=== PATIENT | male | born 1965 | race Caucasian/White ===

== ENCOUNTER 2019-12-20 08:02 | Emergency (ER) | payer OTHER, SELFPAY ==
--- NOTE | 2019-12-20 08:12 | ED.GENADULT ---
HPI - General Adult General Chief complaint: Ear Stated complaint: Ears clogged Time Seen by Provider: 12/20/19 08:16 Source: patient Mode of arrival: ambulatory Limitations: no limitations History of Present Illness HPI narrative: 54-year-old male patient presents to the [facility] with complaints of irritation to the right ear. Patient states he tried using a Q-tip to get some wax out about 2 or 3 days ago and states now it feels very impacted and has decreased hearing to the ear. Denies any fevers or body aches. Related Data Home Medications Medication Instructions Recorded Confirmed fluticasone propionate 50 2 spray NASAL DAILY 07/08/19 mcg/actuation nasal spray,suspension Allergies Allergy/AdvReac Type Severity Reaction Status Date / Time No Known Allergies Allergy Mild Verified 09/12/19 10:36 Review of Systems Review of Systems: Narrative: CONSTITUTIONAL: Denies fever, chills, or sweats. EYES: Denies visual changes, redness, or discharge. ENT: Denies rhinorrhea, congestion, sore throat, positive right otalgia. CARDIOVASCULAR: Denies chest pain, palpitations, or edema. RESPIRATORY: Denies cough or dyspnea. GASTROINTESTINAL: Denies abdominal pain, nausea, vomiting, or diarrhea. GENITOURINARY: Denies dysuria or hematuria. SKIN: Denies rash or itching. MUSCULOSKELETAL: Denies back pain, joint pain, or myalgia. NEUROLOGIC: Denies headache, numbness, or weakness. PSYCHIATRIC: Denies anxiety or depression. [facility] Past Medical History Medical History Tobacco abuse Family History Family History Father Carcinoma of colon Family history of Alzheimer's disease Mother Carcinoma of colon Other Diabetes mellitus Family history of cardiovascular disease Family history of malignant neoplasm Social History Social History Years smoked: 41 Smoking status: Current every day smoker Tobacco type: cigarettes Second hand tobacco smoke exposure: No Smoking end date: 07/02/16 Alcohol intake: never Substance use: never Comments At the time of my signature I agree with nursing past medical history, surgical, social, and family history. There is no relevant family history pertinent to the presenting complaint. Exam Narrative: Exam Narrative: GENERAL: Well-appearing, well-nourished, and in no acute distress. HEAD: Normocephalic, atraumatic. EYES: PERRLA and EOMI. ENT: Nares clear, no rhinorrhea or epistaxis. Mucous membranes moist. Unable to visualize the TM on the right side due to cerumen impaction. NECK: Supple. No lymphadenopathy CHEST: Clear to auscultation. No respiratory distress. HEART: Regular rate and rhythm. No murmur heard. Normal peripheral pulses. ABDOMEN: Soft, nontender, nondistended, normal active bowel sounds. EXTREMITIES: Normal range of motion. No edema. SKIN: Warm, dry, no rash. NEURO: No focal deficits. Alert and oriented x3. Course Vital Signs Vital signs: Vital Signs Temperature 36.4 C 12/20/19 08:13 Pulse Rate 80 12/20/19 08:13 Respiratory Rate 16 12/20/19 08:13 Blood Pressure 141/95 H 12/20/19 08:13 Pulse Oximetry 98 12/20/19 08:13 Temperature 36.4 C 12/20/19 08:13 Pulse Rate 80 12/20/19 08:13 Respiratory Rate 16 12/20/19 08:13 Blood Pressure 141/95 H 12/20/19 08:13 Pulse Oximetry 98 12/20/19 08:13 Vital signs reviewed. The patient has been informed that they may have pre-hypertension or Hypertension based on a BP reading in the department. I recommend that the patient call the primary care provider listed on their discharge instructions or a physician of their choice this week to arrange follow up for further evaluation of possible pre-hypertension or Hypertension Procedures Ear Wax Removal Right Ear: Ear Wax Removal Date: 12/20/19 Ear Wax Tomas
[2019-12-20 08:13] VITALS: BP 141/95; PULSE 80; RESP 16; TEMP 36.4; O2SAT 98
== END 2019-12-20 08:30 | disposition home or self-care (01) ==
PROVIDERS: Emergency Provider Nurse Practitioner Family; PCP Internal Medicine
DX: H61.21 Impacted cerumen, right ear (principal); F17.210 Nicotine dependence, cigarettes, uncomplicated; J44.9 Chronic obstructive pulmonary disease, unspecified
CPT/HCPCS: 69210; 99213; G0463

== ENCOUNTER 2020-03-09 06:57 | Outpatient (CLI) | payer OTHER, SELFPAY ==
[2020-03-09 07:18] LABS: Basophils Absolute Auto 0.1 K/mm3 (0.0-0.1); Basophils Percent Auto 0.8 % (0.2-1.2); Eosinophils Absolute Auto 0.2 K/mm3 (0-0.3); Eosinophils Percent Auto 2.6 % (0-4.4); Hematocrit 50.9 % (42.0-52.0); Hemoglobin 17.4 g/dL (14.0-18.0); Immature Granulocyte Absolute 0.04 K/mm3 (0.00-0.031); Immature Granulocyte Percent A 0.5 % (0-0.5); Lymphocytes Absolute Auto 3.47 K/mm3 (0.9-3.2); Lymphocytes Percent Auto 39.8 % (18.3-44.2); Mean Corpuscular HGB Conc 34.2 g/dl (32-36); Mean Corpuscular Hemoglobin 31.3 pg (26-34); Mean Corpuscular Volume 91.5 fl (80-100); Mean Platelet Volume 9.8 fl (7.4-10.4); Monocytes Absolute Auto 0.8 K/mm3 (0.1-0.6); Monocytes Percent Auto 8.7 % (2.6-8.5); Neutrophils Absolute Auto 4.2 K/mm3 (1.3-6.7); Neutrophils Percent Auto 47.6 % (45.5-73.1); Platelet Count Result 290 k/mm3 (150-375); Red Blood Count 5.56 M/mm3 (4.6-6.20); Red Cell Distribution Width 13.2 % (11.5-14.5); White Blood Count 8.7 K/mm3 (4.5-10.0)
[2020-03-09 08:51] LABS: Alanine Aminotransferase 14 U/L (4-50); Albumin Level 4.1 g/dL (3.5-5.1); Alkaline Phosphatase 79 U/L (38-126); Anion Gap 7 mmol/L (8-16); Aspartate Amino Transferase 22 U/L (17-59); Bilirubin,Total 1.1 mg/dL (0.2-1.3); Blood Urea Nitrogen 12 mg/dL (9-20); Calcium 9.4 mg/dL (8.4-10.2); Carbon Dioxide 25 mmol/L (22-30); Chloride 108 mmol/L (98-107); Cholesterol 234 mg/dL (0-200); Estimated Glomerular Filt Rate > 60; Glucose 95 mg/dL (75-110); HDL Direct 36 mg/dL; Potassium 3.9 mmol/L (3.4-5.0); Sodium 140 mmol/L (137-145); Triglycerides 206 mg/dL (<150)
[2020-03-09 09:04] LABS: LDL Cholesterol Direct 159 mg/dL
[2020-03-09 09:25] LABS: Prostate Specific Antigen 0.9 ng/mL (< OR = 4.0)
[2020-03-09 09:59] LABS: Folic Acid 5.1 ng/mL (2.76->20)
== END 2020-03-09 06:58 | disposition home or self-care (01) ==
PROVIDERS: PCP Internal Medicine; Visit Provider Internal Medicine
DX: R53.83 Other fatigue (principal); E78.5 Hyperlipidemia, unspecified; Z12.5 Encounter for screening for malignant neoplasm of prostate
CPT/HCPCS: 36415; 80053; 80061; 82607; 82746; 84153; 84443; 85025; G0103

== ENCOUNTER 2020-03-17 11:51 | Outpatient (CLI) | payer OTHER, SELFPAY ==
[2020-03-17 12:18] LABS: Add Urine Microscopic? NO; Appearance Urine Clear (Clear); Bilirubin Urine Negative (Negative); Blood Urine Negative (Negative); Color Urine Yellow (Yellow); Glucose Urine UA Negative (Negative); Ketones Urine Negative (Negative); Leukocyte Esterase Ur Negative LEU/UL (Negative); Nitrate Urine Negative (Negative); Protein Urine Negative (Negative); Specific Grav Ur 1.012 (1.001-1.035); Urobilinogen Urine Negative mg/dL (<2.0)
== END 2020-03-17 11:52 | disposition home or self-care (01) ==
LOC: ANHLAB 11:52
PROVIDERS: PCP Internal Medicine; Visit Provider Internal Medicine
DX: R30.0 Dysuria (principal)
CPT/HCPCS: 81003

== ENCOUNTER 2020-06-23 02:13 | Emergency (ER) | payer OTHER, SELFPAY ==
--- NOTE | ~2020-06-23 | CT_ITS ---
EXAMINATION: CT abdomen pelvis w con DATE: 06/23/2020 03:33 INDICATION: Epigastric abdominal pain for 2 days TECHNIQUE: Computed tomography (CT) of the abdomen and pelvis was performed with 100 cc Omnipaque 350 intravenous contrast. Automated exposure control and iterative reconstruction technique were employe d. Exam dose: 1275.23 mGy-cm total exam DLP. COMPARISON: None. FINDINGS: The lung bases are clear of infiltrate or consolidation. There are bilateral posteromedial foramen of [place] fat-containing hernias. Normal heart size. No pericardial or pleural effusion. Small sliding hiatal hernia. 1.4 cm lower right hepatic cyst. No other significant hepatic abnormality. The gallbladder is present . No gallbladder wall thickening or pericholecystic fluid or inflammation. No bile duct dilatation. N o pancreatic mass lesion, calcification or pancreatic duct dilatation. Normal splenic size. Normal morphology of the adrenal glands. No renal mass lesion or urinary tract calculus or hydroureteronephrosis. The urinary bladder is unrem arkable. There are multiple diverticula of the sigmoid colon; no CT evidence of diverticulitis. No bowel obstr uction, bowel wall thickening, pneumatosis or intraperitoneal free air is detected. Normal appendix. There is atherosclerotic calcification of the abdominal aorta but no aneurysm. No intraperitoneal or retroperitoneal or pelvic mass lesion or adenopathy or ascites. Small fat-containing umbilical hernia. No suspicious osteolytic or osteoblastic lesions. Mild degenerative changes of the thoracic and lumba r spine. IMPRESSION: Normal appendix Diverticulosis of the colon Reviewed, dictated and finalized at [facility]. Reviewed, dictated and finalized at location A. ERYMAN
--- NOTE | ~2020-06-23 | XR_ITS ---
EXAMINATION: XR chest 2V DATE: 06/23/2020 03:36 INDICATION: Chest pain TECHNIQUE: PA and lateral views of the chest are obtained. COMPARISON: 09/06/2016 FINDINGS: The lungs are free of acute opacities. There is no pleural effusion or pneumothorax. The ca rdiomediastinal silhouette is normal. The visualized bones and soft tissues are unremarkable. IMPRESSION: 1. No acute cardiopulmonary abnormality. Reviewed, dictated and finalized at location A. SIGN MAKER
--- NOTE | 2020-06-23 02:16 | ED.CHESTPAIN ---
HPI - Chest Pain General Chief Complaint: Chest Pain Stated Complaint: Chest pain, ABD pain Time Seen by Provider: 06/23/20 02:16 Source: patient Mode of arrival: ambulatory Limitations: no limitations History of Present Illness HPI narrative: The patient is a 55-year-old male with a history of COPD who presents for evaluation of epigastric pain. Patient reports pain has been present in the upper abdomen over the past 3 days, worsening in severity, but mostly constant in nature. Described as sharp, burning, aching in nature and tender in the upper abdomen. No associated nausea or vomiting. Tonight he was able to tolerate hamburger and macaroni without any worsened symptoms. He reports some discomfort in his middle back. Pain is not positional. He denies any chest pain, shortness of breath, shoulder pain, diaphoresis. No left arm numbness or tingling. No fever or chills. Patient reports mild productive cough consistent with his COPD but denies any shortness of breath. Denies any worsening wheezing. Has been using his nebulizer treatments at home. Related Data Allergies Allergy/AdvReac Type Severity Reaction Status Date / Time No Known Allergies Allergy Mild Verified 05/11/20 13:32 Review of Systems Review of Systems: Narrative: CONSTITUTIONAL: Denies fever, chills, or sweats. EYES: Denies visual changes, redness, or discharge. ENT: Denies rhinorrhea, congestion, sore throat, or otalgia. CARDIOVASCULAR: Denies chest pain, palpitations, or edema. RESPIRATORY: Reports mild cough without shortness of breath GASTROINTESTINAL: Reports epigastric pain without nausea or vomiting GENITOURINARY: Denies dysuria or hematuria. SKIN: Denies rash or itching. MUSCULOSKELETAL: Reports no radiation of the pain to the back without lower joint pain, flank pain, no myalgias NEUROLOGIC: Denies headache, numbness, or weakness. [facility] Past Medical History Medical History Asthma-COPD overlap syndrome Pure hypercholesterolemia, unspecified Sleep disturbance, unspecified Tobacco abuse Family History Family History (Updated 05/11/20 @ 14:47 by Irma Akers MD) Father Carcinoma of colon Family history of Alzheimer's disease Mother Carcinoma of colon, Onset Age: 78 from liver cancer Mar 2020 Other Diabetes mellitus Family history of cardiovascular disease Family history of malignant neoplasm Social History Social History Smoking packs per day: 0.5 Smoking cigarettes per day: 10.0 Years smoked: 41 Smoking pack-years: 20.50 Smoking status: Current every day smoker Tobacco type: cigarettes Second hand tobacco smoke exposure: No Smoking end date: 07/02/16 Alcohol intake: never Substance use: never Exam Narrative: Exam Narrative: GENERAL: Awake, alert, conversant, mildly uncomfortable appearing HEAD: Normocephalic, atraumatic. EYES: PERRLA and EOMI. ENT: Nares clear, no rhinorrhea or epistaxis. Mucous membranes moist. NECK: Supple. CHEST: No respiratory distress, breathing even and non labored, no wheezing HEART: Regular rate, sinus rhythm ABDOMEN:Non distended, tender in the epigastrium without rebound, rigidity or guarding EXTREMITIES: Normal range of motion. No edema. SKIN: Warm, dry, no rash. NEURO:No focal deficits. Alert and oriented x3 Course Vital Signs Vital signs: Vital Signs Temperature 36.8 C 06/23/20 02:22 Pulse Rate 81 06/23/20 02:22 Respiratory Rate 18 06/23/20 02:22 Blood Pressure 136/105 H 06/23/20 02:22 Pulse Oximetry 95 06/23/20 02:22 Temperature 36.8 C 06/23/20 02:22 Pulse Rate 73 06/23/20 03:17 Respiratory Rate 16 06/23/20 03:17 Blood Pressure 118/68 06/23/20 03:17 Pulse Oximetry 93 06/23/20 03:17 MDM - Chest Pain MDM Narrative Medical decision making narrative: Patient presented for evaluation of epigastric abdo
[2020-06-23 02:22] VITALS: BP 136/105; PULSE 81; RESP 18; TEMP 36.8; O2SAT 95
--- NOTE | 2020-06-23 02:27 | ECG_ITS ---
Measurements Intervals [place] Rate: 69 P: 49 [place]: 133 QRS: -10 QRSD: 89 T: 44 QT: 367 QTc: 395 Interpretive Statements SINUS RHYTHM EARLY PRECORDIAL R/S TRANSITION BORDERLINE ECG Electronically Signed On 06-23-2020 7:40:36 EDUCATION INSTRUCTOR by Khoi Francois D.O.
[2020-06-23] MEDS: MORPHINE SULFATE (*CRX) 4 MG/ML INJ IV PUSH (02:38)
[2020-06-23] MEDS: BELLADONNA ALK/PHENOB ELIX 10 ML, MAG HYDROX/ALUMINUM HYD/SIMETH 30 ML, LIDOCAINE HCL 2... PO (02:39)
[2020-06-23] MEDS: FAMOTIDINE 20 MG/2 ML VIAL IV PUSH (02:39)
[2020-06-23] MEDS: ONDANSETRON INJ 4 MG/2 ML VIAL IV PUSH (02:39)
[2020-06-23 03:17] VITALS: BP 118/68; PULSE 73; RESP 16; O2SAT 93
[2020-06-23 03:23] LABS: Estimated CRCL calculation 85 ml/min; Estimated Glomerular Filt Rate > 60
[2020-06-23 03:24] LABS: Basophils Absolute Auto 0.1 K/mm3 (0.0-0.1); Basophils Percent Auto 0.4 % (0.2-1.2); Eosinophils Absolute Auto 0.1 K/mm3 (0-0.3); Eosinophils Percent Auto 1.2 % (0-4.4); Hematocrit 48.8 % (42.0-52.0); Hemoglobin 16.8 g/dL (14.0-18.0); Immature Granulocyte Absolute 0.04 K/mm3 (0.00-0.031); Immature Granulocyte Percent A 0.3 % (0-0.5); Lymphocytes Absolute Auto 3.23 K/mm3 (0.9-3.2); Lymphocytes Percent Auto 27.8 % (18.3-44.2); Mean Corpuscular HGB Conc 34.4 g/dl (32-36); Mean Corpuscular Hemoglobin 31.8 pg (26-34); Mean Corpuscular Volume 92.2 fl (80-100); Mean Platelet Volume 10.2 fl (7.4-10.4); Monocytes Absolute Auto 1.1 K/mm3 (0.1-0.6); Neutrophils Absolute Auto 7.1 K/mm3 (1.3-6.7); Neutrophils Percent Auto 61.3 % (45.5-73.1); Platelet Count Result 293 k/mm3 (150-375); Red Blood Count 5.29 M/mm3 (4.6-6.20); White Blood Count 11.6 K/mm3 (4.5-10.0)
[2020-06-23 03:36] LABS: Alanine Aminotransferase 16 U/L (4-50); Albumin Level 3.9 g/dL (3.5-5.1); Alkaline Phosphatase 80 U/L (38-126); Anion Gap 7 mmol/L (8-16); Aspartate Amino Transferase 22 U/L (17-59); Bilirubin,Total 0.6 mg/dL (0.2-1.3); Blood Urea Nitrogen 9 mg/dL (9-20); Calcium 9.1 mg/dL (8.4-10.2); Carbon Dioxide 27 mmol/L (22-30); Chloride 104 mmol/L (98-107); Estimated CRCL calculation 85 ml/min; Estimated Glomerular Filt Rate > 60; Glucose 99 mg/dL (75-110); INR 1.1; Lipase 92 U/L (23-300); Partial Thromboplastin Time 32.1 SECONDS (22.3-36.8); Potassium 3.9 mmol/L (3.4-5.0); Prothrombin Time 14.3 Seconds (11.1-14.7); Sodium 138 mmol/L (137-145)
[2020-06-23 03:48] LABS: NT Pro B Type Natriuretic Pept 25 PG/ML (5-100); Troponin I < 0.012 ng/mL (0.000-0.034)
[2020-06-23 04:39] VITALS: BP 134/96; PULSE 78; RESP 16; TEMP 36.7; O2SAT 94
== END 2020-06-23 04:40 | disposition home or self-care (01) ==
PROVIDERS: Emergency Provider Emergency Medicine; PCP Internal Medicine
DX: K44.9 Diaphragmatic hernia without obstruction or gangrene (principal); K20.90 Esophagitis, unspecified without bleeding; K59.09 Other constipation; J44.9 Chronic obstructive pulmonary disease, unspecified; E78.00 Pure hypercholesterolemia, unspecified; G47.9 Sleep disorder, unspecified; F17.210 Nicotine dependence, cigarettes, uncomplicated; R94.31 Abnormal electrocardiogram [ECG] [EKG]
CPT/HCPCS: 36415; 71046; 74177; 80053; 83690; 83880; 84484; 85025; 85610; 85730; 93005; 96374; 96375; 99284; A9270; J2270; J2405; Q9967

== ENCOUNTER 2020-10-14 03:56 | Emergency (ER) | payer OTHER, SELFPAY ==
[2020-10-14] VITALS (11 sets, daily range): BP systolic 121–150; BP diastolic 96–97; PULSE 73–85; RESP 11–22; TEMP 36.8; O2SAT 93–100
--- NOTE | ~2020-10-14 | CT_ITS ---
EXAMINATION: CTA chest PE protocol EXAM DATE: 10/14/2020 05:17 INDICATION: Right-sided chest pain, evaluate for pulmonary embolism. History of COPD. TECHNIQUE: Spiral CTA of the chest (pulmonary arteries) was performed with 100 cc Omnipaque 350 intr avenous contrast injection. Images were acquired during the pulmonary arterial phase. Coronal maxi mum intensity projection 3D-reconstructions were created by the technologist on dedicated workstation . Axial, coronal and sagittal reformatted images were reviewed. The dose-length product (DLP) for t his examination was 883.83 mGy-cm. The exposure was tailored according to patient size (auto mA exp osure control), and iterative reconstruction (ASIR) was used as additional dose reduction technique. Comparison is made to prior examination from 06/09/2019. FINDINGS: Pulmonary arteries are well opacified and without intraluminal filling defects. Chronic hy perinflation. No thoracic aortic dissection. The lungs are clear. There are no pleural or pericar dial effusions. Tracheobronchial tree is patent. There is no mediastinal, hilar or axillary lymph adenopathy. There is no pneumothorax. Heart normal in size. No evidence of coronary arterial ca lcification. There is small sliding gastroesophageal hiatal hernia. There is thoracic spondylosis wi thout osteoblastic or osteolytic lesions identified. IMPRESSION: 1. No pulmonary emboli or acute cardiopulmonary findings. 2. Small to moderate hiatal hernia. 3. Hyperinflation. Reviewed, dictated and finalized at location A.
--- NOTE | ~2020-10-14 | XR_ITS ---
EXAMINATION: XR chest 1V portable EXAM DATE: 10/14/2020 04:48 INDICATION: Right-sided chest pain. TECHNIQUE: Portable AP frontal chest x-ray was obtained. Comparison is made to prior examination from 08/24/2019. FINDINGS: The lungs are clear. There are no pleural effusions. The cardiomediastinal silhouette is within normal limits. There is no pneumothorax suspected. The bones and soft tissues are unremarkab le. IMPRESSION: No acute cardiopulmonary findings. Reviewed, dictated and finalized at location A.
--- NOTE | 2020-10-14 04:08 | ECG_ITS ---
Measurements Intervals [place] Rate: 80 P: 60 NE: 139 QRS: 31 QRSD: 90 T: 55 QT: 352 QTc: 408 Interpretive Statements SINUS RHYTHM WITH SINUS ARRHYTHMIA POSSIBLE LEFT ATRIAL ENLARGEMENT INCOMPLETE RIGHT BUNDLE BRANCH BLOCK BORDERLINE ST-T WAVE ABNORMALITY- DIFFUSE LEADS BASELINE ARTIFACT- I, II, AVR, AVL, V2 BORDERLINE ECG Electronically Signed On 10-14-2020 7:02:47 CDT by Khoi Francois D.O.
[2020-10-14] MEDS: methylPREDNISolone SOD SUCC 125 MG VIAL IV PUSH (04:16)
[2020-10-14 04:23] LABS: Basophils Absolute Auto 0.1 K/mm3 (0.0-0.1); Basophils Percent Auto 0.6 % (0.2-1.2); Eosinophils Absolute Auto 0.2 K/mm3 (0-0.3); Eosinophils Percent Auto 1.5 % (0-4.4); Hematocrit 50.6 % (42.0-52.0); Hemoglobin 16.9 g/dL (14.0-18.0); Immature Granulocyte Absolute 0.03 K/mm3 (0.00-0.031); Immature Granulocyte Percent A 0.3 % (0-0.5); Lymphocytes Absolute Auto 2.96 K/mm3 (0.9-3.2); Lymphocytes Percent Auto 27.3 % (18.3-44.2); Mean Corpuscular HGB Conc 33.4 g/dl (32-36); Mean Corpuscular Hemoglobin 31.1 pg (26-34); Mean Corpuscular Volume 93.2 fl (80-100); Monocytes Percent Auto 8.9 % (2.6-8.5); Neutrophils Absolute Auto 6.7 K/mm3 (1.3-6.7); Neutrophils Percent Auto 61.4 % (45.5-73.1); Platelet Count Result 309 k/mm3 (150-375); Red Blood Count 5.43 M/mm3 (4.6-6.20); Red Cell Distribution Width 13.2 % (11.5-14.5); White Blood Count 10.8 K/mm3 (4.5-10.0)
[2020-10-14] MEDS: ALBUTEROL SULFATE NEB 2.5 MG/0.5 ML INH 5 MG INHALATION (04:26)
[2020-10-14] MEDS: IPRATROPIUM BR 0.02% INH SOLN 0.5 MG/2.5 ML VIAL INHALATION (04:26)
--- NOTE | 2020-10-14 04:33 | ED.GENADULT ---
HPI - General Adult General Chief complaint: Shortness of Breath/Dyspnea Stated complaint: i think i need a breathing treatment Time Seen by Provider: 10/14/20 04:05 History of Present Illness HPI narrative: Patient is a 55-year-old gentleman who presents the extremities with minimal right-sided chest pain. 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 Patient states that shortly mild right-sided chest with inspiration. Patient denies fever denies chills reports this feels a little short of breath with it but it is more due to the pain. Patient states that he has not had any upper respiratory symptoms recently Related Data Allergies Allergy/AdvReac Type Severity Reaction Status Date / Time No Known Allergies Allergy Mild Verified 10/14/20 04:08 Review of Systems Review of Systems: Narrative: A 10 system review of systems was completed on the patient and is negative except for what is stated in the HPI. Nursing and ancillary documentation was reviewed. [facility] Past Medical History Medical History Asthma-COPD overlap syndrome Pure hypercholesterolemia, unspecified Sleep disturbance, unspecified Tobacco abuse Family History Family History Father Carcinoma of colon Family history of Alzheimer's disease Mother Carcinoma of colon, Onset Age: 78 from liver cancer Mar 2020 Other Diabetes mellitus Family history of cardiovascular disease Family history of malignant neoplasm Social History Social History Smoking packs per day: 0.5 Smoking cigarettes per day: 10.0 Years smoked: 41 Smoking pack-years: 20.50 Smoking status: Current every day smoker Tobacco type: cigarettes Second hand tobacco smoke exposure: No Smoking end date: 07/02/16 Alcohol intake: never Substance use: never Exam Narrative: Exam Narrative: GENERAL: Well-appearing, well-nourished, and in no acute distress. HEAD: Normocephalic, atraumatic. EYES: PERRLA and EOMI. ENT: Nares clear, no rhinorrhea or epistaxis. Mucous membranes moist. NECK: Supple. CHEST: Clear to auscultation. No respiratory distress. HEART: Regular rate and rhythm. No murmur heard. Normal peripheral pulses. ABDOMEN: Soft, nontender, nondistended, normal active bowel sounds. EXTREMITIES: Normal range of motion. No edema. SKIN: Warm, dry, no rash. NEURO: No focal deficits. Alert and oriented x3. PSYCH: Normal mood and affect. Course Vital Signs Vital signs: Vital Signs Temperature 36.8 C 10/14/20 04:01 Pulse Rate 85 10/14/20 04:01 Respiratory Rate 22 H 10/14/20 04:01 Pulse Oximetry 97 10/14/20 04:01 Temperature 36.8 C 10/14/20 04:01 Pulse Rate 78 10/14/20 05:00 Respiratory Rate 16 10/14/20 05:00 Blood Pressure 129/97 H 10/14/20 04:41 Pulse Oximetry 94 10/14/20 05:00 Medical Decision Making Vital Signs Vital Signs: Vital Signs Temperature 36.8 C 10/14/20 04:01 Pulse Rate 85 10/14/20 04:01 Respiratory Rate 22 H 10/14/20 04:01 Pulse Oximetry 97 10/14/20 04:01 Temperature 36.8 C 10/14/20 04:01 Pulse Rate 78 10/14/20 05:00 Respiratory Rate 16 10/14/20 05:00 Blood Pressure 129/97 H 10/14/20 04:41 Pulse Oximetry 94 10/14/20 05:00 Lab Data Result diagrams: 10/14/20 04:14 10/14/20 04:14 Labs: Lab Results 10/14/20 10/14/20 Range/Units 04:14 04:14 WBC 10.8 H (4.5-10.0) K/mm3 RBC 5.43 (4.6-6.20) M/mm3 Hgb 16.9 (14.0-18.0) g/dL Hct 50.6 (42.0-52.0) % MCV 93.2 (80-100) fl MCH 31.1 (26-34) pg MCHC 33.4 (32-36) g/dl RDW 13.2 (11.5-14.5) % Plt Count 309 (150-375) k/mm3 MPV 10.0 (7.4-10.4) fl Immature Gran % (Auto) 0.3 (0-0.5) % Neut
[2020-10-14 04:35] LABS: Alanine Aminotransferase 15 U/L (4-50); Albumin Level 4.2 g/dL (3.5-5.1); Alkaline Phosphatase 81 U/L (38-126); Anion Gap 3 mmol/L (8-16); Aspartate Amino Transferase 27 U/L (17-59); Bilirubin,Total 0.5 mg/dL (0.2-1.3); Blood Urea Nitrogen 13 mg/dL (9-20); Calcium 8.9 mg/dL (8.4-10.2); Carbon Dioxide 30 mmol/L (22-30); Chloride 108 mmol/L (98-107); Estimated CRCL calculation 77 ml/min; Estimated Glomerular Filt Rate > 60; Glucose 109 mg/dL (75-110); Potassium 3.9 mmol/L (3.4-5.0); Sodium 141 mmol/L (137-145)
[2020-10-14 04:47] LABS: NT Pro B Type Natriuretic Pept 33 PG/ML (5-100); Troponin I < 0.012 ng/mL (0.000-0.034)
--- NOTE | 2020-10-14 05:07 | PC.NURSE ---
pt to radiology
== END 2020-10-14 06:57 | disposition home or self-care (01) ==
PROVIDERS: Emergency Provider Emergency Medicine; PCP Internal Medicine
DX: J44.1 Chronic obstructive pulmonary disease with (acute) exacerbation (principal); R07.89 Other chest pain; E78.00 Pure hypercholesterolemia, unspecified; G47.9 Sleep disorder, unspecified; F17.210 Nicotine dependence, cigarettes, uncomplicated; I45.10 Unspecified right bundle-branch block; R94.31 Abnormal electrocardiogram [ECG] [EKG]; K44.9 Diaphragmatic hernia without obstruction or gangrene
CPT/HCPCS: 36415; 71045; 71275; 80053; 83880; 84484; 85025; 93005; 94640; 96374; 99284; J2930; Q9967

== ENCOUNTER 2021-08-24 00:47 | Day surgery (SDC) | payer OTHER, SELFPAY ==
[2021-08-16 14:37] VITALS: BMI 29.9
--- NOTE | 2021-08-16 15:10 | PC.NURSE ---
Report to the Outpatient Waiting Room, entrance under the green pavilion located off [facility], at time _11:30__ on date _08/24/21 . OR Time: __1:30pm . IF YOUR SURGERY TIME IS ADJUSTED, YOU WILL BE NOTIFIED ON Sunday08/23/21 AFTERNOON - You and your visitor will be asked a series of questions to screen for COVID 19 for your protection. - A mask is required within the hospital. Preoperative COVID Testing Requirements: No COVID Test needed if: (proof is required; if not received patient will have Rapid Test prior to entry) - Patient has received COVID Vaccine at least 14 days prior to procedure date or - Patient has positive COVID test result within last 90 days of surgery date. COVID Test needed if above criteria is not met If not COVID vaccinated a COVID test must be conducted within 72 hours of surgery and patient is asked to isolate self from time of testing until procedure. You will go to the [facility] for your COVID testing. The [facility] is located at the corner of [address] [facility]. You will only be called if COVID results are positive and your surgeon may reschedule your elective surgery date. Patients may have clear liquids (water, carbonated beverages, clear teas, apple juice) until 3 hours prior to surgery with a maximum of 20 ounces. - No food from midnight until time of surgery - Infants may have breast milk until 4 hours before surgery, formula 6 hours prior to surgery. - Children will be allowed to drink immediately following surgery. If applicable, please bring a bottle or sippy cup to assist with drinking. Juice, water, soda, and popsicles are readily available. For infants on formula, please bring formula the day of surgery. Pacifiers are allowed. Take the following medications with a SIP of water the morning of surgery: _HYDROCODONE PRN FOR MIGRAINE ; NEBS AND INHALERS PER ROUTINE Medications to discontinue per physician Date to take last dose__N/A Please no make-up, nail chinese, hairspray, perfume, deodorant, or body powder the day of surgery. No jewelry (including any body piercings) or valuables the day of surgery, leave them at home. Please take a shower or bath the night before, or the morning of, surgery with an antibacterial soap. Wear comfortable, loose fitting clothing. Children are encouraged to wear pajamas. - Jewelry must be removed prior to entering the operating room. Rings and piercings that are not removed may be cut off. - The hospital will not accept responsibility for valuables. - Please leave all valuables, including medications, at home the day of surgery. If you are going home after surgery, a licensed dedicated truck driver must drive you home. - NO public transportation without aIfnother adult. - We recommend that an adult stay with you for 24 hours following discharge. - We also recommend that you do not drive, make important decision, drink alcoholic beverages, or take any drugs that were not prescribed by your health care provider for at least 24 hours after your discharge time. For Pediatric surgeries, we recommend two adults accompany the child home (only one inside the building at this time). One visitor will be allowed to accompany the patient into the hospital. Patients visitor will be instructed to remain with patient at all times or leave the building. We will allow the visitor to come back to the postoperative area when patient is ready. Follow any additional instructions given to you from your surgeon. Telephone instructions given to _ANDY_and asked if any additional questions and then verbalized understanding. Patient advised to call surgeon office or pre surgery nurse liaison [phone] if any additional questions.
[2021-08-24] MEDS: LACTATED RINGERS 1,000 ML 30 ML IV CONT ×2 (09:40→11:57)
[2021-08-24] MEDS: KETOROLAC 15 MG/ML VIAL (*BKC) IV PUSH (09:41)
[2021-08-24] MEDS: ACETAMINOPHEN 500 MG TABLET 1000 MG PO (09:41)
[2021-08-24 09:53] VITALS: BP 131/82; PULSE 76; RESP 20; TEMP 36.3; O2SAT 95; BMI 29.1
--- NOTE | 2021-08-24 10:51 | WPDANESEPPF ---
Anes - Initial Pre Proc Eval Procedure: Operation Date: 08/24/21 11:00 Proposed Procedures p Rectal Exam Under Anesthesia, Possible Anal Fistulotomy, Possible Internal Hemorrhoids Rubber Banding - Eduardo Basilio DO Date/Time: 08/24/21 10:51 Surgeon: Eduardo Basilio DO Pre Op Diagnosis: rectal pain Patient Data Age: 56 Gender: M Height: 1.83 m Weight: 97.5 kg Last Vital Signs Temp 36.3 C L 08/24/21 09:53 Pulse 76 08/24/21 09:53 Resp 20 08/24/21 09:53 BP 131/82 08/24/21 09:53 Pulse Ox 95 08/24/21 09:53 Allergies Allergy/AdvReac Type Severity Reaction Status Date / Time No Known Allergies Allergy Mild Verified 08/24/21 09:19 Home Medications Medication Instructions Recorded Confirmed Type ipratropium 0.5 mg-albuterol 3 mg See Rx Instructions .ROUTE 08/24/20 08/24/21 Rx (2.5 mg base)/3 mL nebulization .COMPLEX #180 ml soln albuterol sulfate 2.5 mg INHALATION QID PRN #360 ml 10/22/20 08/24/21 Rx budesonide-formoterol HFA 160 2 puff INHALATION Q12H #10.2 g 11/19/20 08/24/21 Rx mcg-4.5 mcg/actuation aerosol inhaler omeprazole 40 mg capsule,delayed 40 mg PO DAILY #30 cap 01/12/21 08/24/21 Rx release albuterol sulfate 90 mcg/actuation See Rx Instructions .ROUTE 05/16/21 08/16/21 Rx aerosol inhaler .COMPLEX #18 g hydrocodone 5 mg-acetaminophen 325 1 tablet PO Q12H PRN #40 tablet 08/22/21 Rx mg tablet Patient hx anesthesia problems: none Family hx anesthesia problems: none Results Review: All pre-operative results and documents have been reviewed as part of the pre-operative evaluation. [facility] Past Medical History Medical History Asthma-COPD overlap syndrome Pure hypercholesterolemia, unspecified Sleep disturbance, unspecified Tobacco abuse Family History Family History Father Carcinoma of colon Family history of Alzheimer's disease Mother Carcinoma of colon, Onset Age: 78 from liver cancer Mar 2020 Other Diabetes mellitus Family history of cardiovascular disease Family history of malignant neoplasm Social History Social History Smoking packs per day: 1 Smoking cigarettes per day: 20.0 Years smoked: 25 Smoking pack-years: 25.00 Smoking status: Current every day smoker Tobacco type: cigarettes Second hand tobacco smoke exposure: No Alcohol intake: current Substance use: never Substance use type: does not use Spiritual care concerns: No Anes - Eval Final PreProcedure Day of Procedure 08/24/21 10:51 Patient weight: overweight Heart: regular rate and rhythm Lungs: decreased breath sounds Airway: Mallampati scale class II Neurological: alert and oriented Last oral intake: >/= 8 hours ASA classification: III Emergent: no Anesthetic plan: proceed Anesthesia type and monitoring: general GIVS and standard monitoring Results Review: All pre-operative results and documents have been reviewed as part of the pre-operative evaluation. Informed Consent: The patient's anesthetic plan and its attendant risks and benefits were discussed with the patient/family/POA. Questions were solicited and answers provided to the satisfaction of the patient/family/POA.
--- NOTE | 2021-08-24 11:02 | WPDHPUPDATE1 ---
History and Physical Update Update Date/Time: 08/24/21 11:02 History and Physical has been reviewed, including an updated exam of the patient. There are NO changes in the patient's condition. Risks, benefits, and alternatives have been discussed and questions answered. Patient agrees to proceed with procedure.
[2021-08-24] MEDS: ceFAZolin 2 GM/D5W 50 ML 2 GM/50 ML BAG IVPB (11:05)
[2021-08-24] MEDS: LIDO 1%/EPINEPHRINE/PF 1:200,000 30 ML VIAL XX (11:52)
[2021-08-24] MEDS: HYDROGEN PEROXIDE 3% SOLN(*SP) 473 ML BOTTLE 20 ML IRRIGATION (11:52)
[2021-08-24 11:57] VITALS: BP 154/99; PULSE 84; RESP 14; O2SAT 99
[2021-08-24 12:02] VITALS: O2SAT 97
--- NOTE | 2021-08-24 12:13 | W.PM.PROC2 ---
Procedure Note - Detailed Date of Procedure 08/24/21 Pre-op Diagnosis rectal pain Post-op Diagnosis other (Anterior midline instersphincteric anal fistula) Procedure Performed Rectal exam under anesthesia, intersphincteric anal fistulotomy Surgeon Eduardo Basilio, DO Anesthesia MAC and local (1% Lidocaine with epi) Indications This is a 56-year-old man who presents with intermittent drainage and swelling with pain at his rectum. He has had this ongoing for the past 2-3 years after experiencing a perirectal abscess. He was seen 2 years ago and was found to have an anterior midline anal fistula. Surgery was recommended at that time, but patient declined surgery and wanted to continue watching this. He has continued to have intermittent problems with this. Recently he had another episode of significant drainage. Discussions were made with him about his treatment options and decision was made to proceed with rectal exam under anesthesia with possible anal fistulotomy and possible internal hemorrhoid rubber banding. Findings Rectal exam under anesthesia was performed. The patient was found to have a small depression in the anterior midline perianal skin. This was carefully inspected and there appeared to be a small sinus tract within this depression. This was tracked with a lacrimal probe and it appeared to track to the anterior midline anal canal. This appeared to be an intersphincteric anal fistula. It was only containing a few sphincter muscle fibers. An anal fistulotomy was performed directly over this region. No other abnormalities were noted. Description of Procedure Procedure as well as risks, benefits, and alternatives were discussed with the patient. Written consent was obtained and placed in chart prior to procedure. Patient was brought back to surgical suite. He was placed supine on operating table. Time-out was done to confirm patient and procedure. He was then positioned into prone froilan-knife position on the operating table. IV sedation was then administered by the anesthesia department. His perirectal area was prepped and draped in sterile fashion using Betadine prep. Digital rectal exam was initially performed. 1% lidocaine with epinephrine was then infiltrated locally around the perianal skin. A Betsey anoscope was then inserted in the anal rectal canal was carefully inspected. There appeared to be a small depression along the anterior midline anal canal that seemed likely to be the internal opening for the fistula. No purulence was noted. No other internal abnormalities were seen. Along the perianal skin there was a small depression on the anterior midline perianal skin about 2 cm from the anal verge. A lacrimal probe was used to carefully track where this depression was going. There did appear to be a small sinus tract that advanced all the way to the internal opening within the anal canal. 1% lidocaine with epinephrine was then infiltrated directly over this tract and with the lacrimal probe in place a 15 blade scalpel was then used to make an incision directly over this tract. Electrocautery was used for hemostasis and for dissection through the subcutaneous tissue all the way through the entire fistula tract. The chronic granulation tissue was then debrided using electrocautery. Hemostasis appeared adequate. The wound was then irrigated with sterile saline. No other abnormalities were noted. Xeroform gauze was then applied. The anoscope was then removed. Fluff gauze and mesh underwear were then applied. The patient was then awakened from anesthesia and transferred to recovery. Estimated Blood Loss 5 Complications No immediate complications Condition stable Disposition same day
[2021-08-24 12:20] VITALS: BP 151/102; PULSE 77; RESP 18; O2SAT 94
--- NOTE | 2021-08-24 12:43 | SUR.PHASEII ---
DR. EVANGELISTA NOTIFIED OF PATIENT VITALS. ELEVATED BLOOD PRESSURE, RECOMMENDS FOLLOW UP WITH PRIMARY DR. O2 SAT 93-94% ON ROOM AIR. NO CHEST XRAY RECOMMENDED AFTER EPISODE OF VOMITING INTRAOP.
[2021-08-24 12:50] VITALS: BP 139/99; PULSE 85; RESP 18; O2SAT 94
[2021-08-24 13:10] VITALS: BP 137/98; PULSE 78; RESP 20; O2SAT 95
== END 2021-08-24 13:14 | disposition home or self-care (01) ==
PROVIDERS: PCP Internal Medicine; Visit Provider Surgery
PROC: (CPT 46275; principal; 2021-08-24 11:00)
DX: K60.3 Anal fistula (principal); J44.9 Chronic obstructive pulmonary disease, unspecified; E78.00 Pure hypercholesterolemia, unspecified; Z79.51 Long term (current) use of inhaled steroids; F17.210 Nicotine dependence, cigarettes, uncomplicated
CPT/HCPCS: 46275; A9270; J0690; J1885; J2250; J2704; J3010; J7120

== ENCOUNTER 2021-09-04 11:55 | Outpatient (CLI) | payer OTHER, SELFPAY ==
--- NOTE | ~2021-09-04 | MR_ITS ---
EXAMINATION: MR brain IAC wo con DATE: 09/04/2021 13:14 INDICATION: Headache, unspecified. TECHNIQUE: Magnetic resonance imaging (MRI) of the brain, brainstem, and internal auditory canals was performed without intravenous contrast. Sequences included sagittal and axial T1-weighted FSE, axial diffusion-weighted FS EPI, axial T2*-weighted GRE, axial T2-weighted FLAIR Propeller, axial T2-weigh michelle Propeller, small xhkor-xf-vytg coronal FIESTA, small dcmxr-ub-bucf coronal T1-weighted FSE, and s mall vzizg-eb-aptx axial T1-weighted SPGR. Apparent diffusion coefficient (ADC) maps were created. COMPARISON: Head CT 02/26/2004 FINDINGS: There are scattered areas of nonspecific increased T2-weighted signal intensity in the cere bral white matter, which is within normal limits for the patient's age. There is no intracranial hemo rrhage, acute infarction, or abnormal intracranial mass lesion. The ventricles are normal in size. Th e internal auditory canals and inner and middle ears are normal. The mastoid air cells are normal. Th ere is mild mucosal thickening in the ethmoid sinuses. The orbits are normal. IMPRESSION: 1. Normal aging brain. Reviewed, dictated and finalized at location A. KFAST ATTENDANT IMPRESSION: 1. Normal aging brain.
== END 2021-09-04 11:56 | disposition home or self-care (01) ==
LOC: ANHIMG 11:57
PROVIDERS: PCP Internal Medicine; Visit Provider Physician Assistant
DX: R51.9 Headache, unspecified (principal)
CPT/HCPCS: 70551

== ENCOUNTER 2022-03-26 17:03 | Emergency (ER) | payer OTHER, SELFPAY ==
--- NOTE | ~2022-03-26 | XR_ITS ---
XR chest 2V DATE: 03/26/2022 17:47 INDICATION: Shortness of breath. History of COPD. TECHNIQUE: PA and lateral views COMPARISON: CT pulmonary scan FINDINGS: Normal heart size. No hilar or mediastinal enlargement. No pulmonary infiltrate or consolid ation, pleural effusion or pulmonary vascular congestion or pneumothorax is detected. Included skeletal structures are unremarkable. IMPRESSION: No active cardiopulmonary disease Reviewed, dictated and finalized at location A.
[2022-03-26 17:10] VITALS: BP 119/83; PULSE 76; RESP 20; TEMP 36.2; O2SAT 99
--- NOTE | 2022-03-26 17:16 | ECG_ITS ---
Measurements Intervals [place] Rate: 70 P: 53 TX: 144 QRS: 22 QRSD: 85 T: 42 QT: 368 QTc: 397 Interpretive Statements SINUS RHYTHM BASELINE ARTIFACT- I, III NORMAL ECG COMPARED TO ECG 10/14/2020 04:06:56 NO SIGNIFICANT CHANGES Electronically Signed On 03-26-2022 18:54:02 CDT by Khoi Francois D.O.
[2022-03-26 17:35] VITALS: O2SAT 98
[2022-03-26 17:36] LABS: Basophils Absolute Auto 0.1 K/mm3 (0.0-0.1); Basophils Percent Auto 0.7 % (0.2-1.2); Eosinophils Absolute Auto 0.1 K/mm3 (0-0.3); Eosinophils Percent Auto 0.9 % (0-4.4); Hematocrit 48.5 % (42.0-52.0); Hemoglobin 16.4 g/dL (14.0-18.0); Immature Granulocyte Absolute 0.04 K/mm3 (0.00-0.031); Immature Granulocyte Percent A 0.5 % (0-0.5); Lymphocytes Percent Auto 25.1 % (18.3-44.2); Mean Corpuscular HGB Conc 33.8 g/dl (32-36); Mean Corpuscular Hemoglobin 31.8 pg (26-34); Mean Platelet Volume 9.7 fl (7.4-10.4); Monocytes Absolute Auto 0.7 K/mm3 (0.1-0.6); Monocytes Percent Auto 8.4 % (2.6-8.5); Neutrophils Absolute Auto 5.7 K/mm3 (1.3-6.7); Neutrophils Percent Auto 64.4 % (45.5-73.1); Platelet Count Result 298 k/mm3 (150-375); Red Blood Count 5.16 M/mm3 (4.6-6.20); Red Cell Distribution Width 13.4 % (11.5-14.5); White Blood Count 8.8 K/mm3 (4.5-10.0)
[2022-03-26 17:47] LABS: Alanine Aminotransferase 17 U/L (6-50); Albumin Level 3.9 g/dL (3.5-5.1); Alkaline Phosphatase 72 U/L (38-126); Anion Gap 7 mmol/L (8-16); Aspartate Amino Transferase 20 U/L (17-59); Bilirubin,Total 0.5 mg/dL (0.2-1.3); Blood Urea Nitrogen 11 mg/dL (9-20); Calcium 8.9 mg/dL (8.4-10.2); Carbon Dioxide 23 mmol/L (22-30); Chloride 108 mmol/L (98-107); Estimated CRCL calculation 72 ml/min; Estimated Glomerular Filt Rate > 60; Glucose 102 mg/dL (65-110); Potassium 4.3 mmol/L (3.4-5.0); Sodium 138 mmol/L (137-145)
[2022-03-26] MEDS: MAGNESIUM SULF 2 GM/WATER 50ML 2 GM/50 ML BAG IVPB (18:15)
[2022-03-26] MEDS: methylPREDNISolone SOD SUCC 125 MG VIAL IV PUSH (18:16)
[2022-03-26 18:20] VITALS: PULSE 76; RESP 18
[2022-03-26] MEDS: ALBUTEROL SULFATE NEB 2.5 MG/3 ML INH 15 MG INHALATION (18:22)
[2022-03-26 18:23] LABS: Magnesium 2.2 mg/dL (1.6-2.3)
[2022-03-26] MEDS: IPRATROPIUM BR 0.02% INH SOLN 0.5 MG/2.5 ML VIAL 1.5 MG INHALATION (18:23)
[2022-03-26 18:36] LABS: Troponin I < 0.012 ng/mL (0.000-0.034)
[2022-03-26 19:01] VITALS: BP 125/96; PULSE 69; RESP 13; O2SAT 98
--- NOTE | 2022-03-26 19:22 | PC.NURSE ---
Report received from MURRAY Douglas. Assumed care of patient at this time.
--- NOTE | 2022-03-26 19:29 | PC.NURSE ---
Patient states he feels much better and is ready to go home. ERP notified.
--- NOTE | 2022-03-26 21:32 | ED.GENADULT ---
HPI - General Adult General Chief complaint: Shortness of Breath/Dyspnea Stated complaint: COPD, DUST EXPOSURE TROUBLE BREATHING Time Seen by Provider: 03/26/22 17:42 History of Present Illness HPI narrative: This is a 56-year-old male presenting to the ED with difficulty breathing patient has a history of COPD and is a current smoker. He was mowing his lawn yesterday there was significant amount of dust and grass clippings in the air. He started have slowly worsening shortness of breath overnight and this morning he was not able to find relief with his duoneb nebulizer. Patient is also complaining of left shoulder pain. it is tender to palpation and worse with movement. 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 Related Data Allergies Allergy/AdvReac Type Severity Reaction Status Date / Time codeine AdvReac Jittery Verified 03/26/22 17:10 Review of Systems Review of Systems: CONSTITUTIONAL: Denies night sweats. EYES: No eye pain ENT: Denies rhinorrhea CARDIOVASCULAR: Denies palpitations RESPIRATORY: Denies hemoptysis GASTROINTESTINAL: Denies hematemesis GENITOURINARY: Denies hematuria. SKIN: Denies rash MUSCULOSKELETAL: Denies myalgia. NEUROLOGIC: Denies weakness. PSYCHIATRIC: Denies delusions PMFSH Past Medical History Medical History Asthma-COPD overlap syndrome Fistula Pure hypercholesterolemia, unspecified Sleep disturbance, unspecified Tobacco abuse Family History Family History Father Carcinoma of colon Family history of Alzheimer's disease Mother Carcinoma of colon, Onset Age: 78 from liver cancer Mar 2020 Other Diabetes mellitus Family history of cardiovascular disease Family history of malignant neoplasm Social History Social History Smoking packs per day: 1 Smoking cigarettes per day: 20.0 Years smoked: 25 Smoking pack-years: 25.00 Smoking status: Current every day smoker Tobacco type: cigarettes Second hand tobacco smoke exposure: No Alcohol intake: current Substance use: never Substance use type: does not use Spiritual care concerns: No Exam Narrative: APPEARANCE: No apparent distress. Head atraumatic. EYES: PERRLA/EOMI, NOSE: Normal no drainage NECK: Supple, Trachea midline RESPIRATORY: Patient has scattered expiratory wheezing. He is able to speak in full sentences. He is not using accessory muscles. CARDIOVASCULAR: S1S2 appreciated No peripheral edema ABDOMINAL: Soft, nontender, nondistended, MUSCULOSKELETAl: No obvious deformities, patient has tenderness to palpation over the left rhomboid muscles. There is pain with movement of his left arm. There is no limit in function. There is no overlying skin changes. NEURO: Alert. Moving 4/4 extremities SKIN:: Warm, dry. Normal color PSYCHIATRIC: Normal affect Course Vital Signs Vital signs: Vital Signs Temperature 97.2 F L 03/26/22 17:10 Pulse Rate 76 03/26/22 17:10 Respiratory Rate 20 03/26/22 17:10 Blood Pressure 119/83 03/26/22 17:10 Pulse Oximetry 99 03/26/22 17:10 Oxygen Delivery Room Air 03/26/22 17:10 Temperature 97.2 F L 03/26/22 17:10 Pulse Rate 69 03/26/22 19:01 Respiratory Rate 13 03/26/22 19:01 Blood Pressure 125/96 H 03/26/22 19:01 Pulse Oximetry 98 03/26/22 19:01 Oxygen Delivery Room Air 03/26/22 17:35 Medical Decision Making MDM Narrative Medical decision making narrative: This is a 56-year-old male with history of COPD/ asthma presenting to ED with shortness of breath. His physical exam is consistent with COPD exacerbation. He will be treated with DuoNebs, magnesium and steroids. Patient is also complaining of left shoulder pain. History and physical are consistent with musculoskeletal pain. Lab work, chest x-ray EKG have been or
== END 2022-03-26 19:56 | disposition home or self-care (01) ==
PROVIDERS: Emergency Medicine; Emergency Provider Emergency Medicine; PCP Internal Medicine
DX: J44.9 Chronic obstructive pulmonary disease, unspecified (principal); E78.00 Pure hypercholesterolemia, unspecified; G47.9 Sleep disorder, unspecified; F17.210 Nicotine dependence, cigarettes, uncomplicated
CPT/HCPCS: 36415; 71046; 80053; 83735; 84484; 85025; 93005; 94640; 96365; 96375; 99284; J2930; J3475

== ENCOUNTER 2022-05-18 09:47 | Outpatient (CLI) | payer OTHER, SELFPAY ==
--- NOTE | ~2022-05-18 | CT_ITS ---
EXAMINATION: CT lung screening DATE: 05/18/2022 10:05 INDICATION: Personal history of nicotine dependence, current smoker with 30 to pack year history TECHNIQUE: Computed tomography (CT) of the chest was performed without intravenous contrast. The dose -length product (DLP) was 247.27 mGy-cm. Automated exposure control and iterative reconstruction tech [email or web address] were employed. COMPARISON: 10/14/2020 FINDINGS: There is a 2 mm nodule in the right lung apex. There is a 3 mm nodule in the right middle l obe. No pleural effusion or pneumothorax. No pathologically enlarged thoracic lymph nodes are identif ied. The heart size is normal. There is a 10 mm cyst of the liver. There is mild thoracic spondylosis . IMPRESSION: 1. Lung-RADS category 2: Benign appearance or behavior. Continue annual screening with noncontrast lo w-dose chest CT in 12 months. Reviewed, dictated and finalized at location F. COLLECTOR IMPRESSION: 1. Lung-RADS category 2: Benign appearance or behavior. Continue annual screeni ng with noncontrast low-dose chest CT in 12 months.
== END 2022-05-18 09:48 | disposition home or self-care (01) ==
PROVIDERS: PCP Internal Medicine; Visit Provider Physician Assistant
DX: Z12.2 Encounter for screening for malignant neoplasm of respiratory organs (principal); Z87.891 Personal history of nicotine dependence
CPT/HCPCS: 71271

== ENCOUNTER 2023-02-12 05:33 | Emergency (ER) | payer OTHER, SELFPAY ==
--- NOTE | ~2023-02-12 | XR_ITS ---
EXAMINATION: XR chest 1V portable DATE: 02/12/2023 06:01 INDICATION: Cough. TECHNIQUE: A single frontal view of the chest was obtained. COMPARISON: Chest 2 views 03/26/2022, chest CT 05/18/2022 FINDINGS: There are lucencies in the lungs, consistent with emphysema. There is mild atelectasis in t he lower lung zones. No pleural effusion or pneumothorax. The heart size is normal. IMPRESSION: 1. Emphysema. 2. Mild atelectasis in the lower lung zones. Reviewed, dictated and finalized at location A.
[2023-02-12 05:37] VITALS: BP 156/107; PULSE 98; RESP 18; TEMP 36.1; O2SAT 98
--- NOTE | 2023-02-12 05:55 | ED.GENADULT ---
HPI - General Adult General Chief complaint: Unspecified Stated complaint: cough, fever, diarrhea, headache Time Seen by Provider: 02/12/23 05:43 History of Present Illness HPI narrative: This is a 49-year-old male history of COPD presents to ED with 1 week of flu-like symptoms. Patient says he has been having headaches body aches cough congestion fatigue and diarrhea. He is tolerating p.o., no chest pain difficulty breathing abdominal pain or urinary symptoms. Denies sore throat. Patient says he has lost his sense of taste. Patient is vaccinated against COVID. No sick contacts at home Related Data Home Medications Medication Instructions Recorded Confirmed clobetasol 0.05 % topical ointment g topical 10/13/22 10/18/22 Allergies Allergy/AdvReac Type Severity Reaction Status Date / Time codeine AdvReac Jittery Verified 02/12/23 05:34 [facility] Past Medical History Medical History Asthma-COPD overlap syndrome Fistula Pure hypercholesterolemia, unspecified Sleep disturbance, unspecified Tobacco abuse Family History Family History Father Carcinoma of colon Family history of Alzheimer's disease Mother Carcinoma of colon, Onset Age: 78 from liver cancer Mar 2020 Other Diabetes mellitus Family history of cardiovascular disease Family history of malignant neoplasm Social History Social History Smoking packs per day: 1 Smoking cigarettes per day: 20.0 Years smoked: 25 Smoking pack-years: 25.00 Smoking status: Current every day smoker Tobacco type: cigarettes Second hand tobacco smoke exposure: No Alcohol intake: current Substance use: never Substance use type: does not use Lack of Transportation: No Lack of Food: Sometimes True Current Housing: I Have Housing Concerned About Future Housing: No Difficulty Paying Gas/Electric Bills: YES Difficulty Paying for Meds: No Currently Unemployed: YES Education: High School Diploma/GED Difficulty w/ Childcare or Family Care: No Spiritual care concerns: No Exam Narrative: APPEARANCE: No apparent distress. well-appearing Head: atraumatic. EYES: EOMI, NOSE: Atraumatic NECK: Trachea midline RESPIRATORY: No increased rate of breathing, scattered expiratory wheezing CARDIOVASCULAR: RRR, no peripheral edema ABDOMINAL: Non-distended, soft nontender MUSCULOSKELETAl: No obvious deformities NEURO: Alert. Moving 4/4 extremities SKIN:: Warm, dry. Normal color PSYCHIATRIC: Normal affect Course Vital Signs Vital signs: Vital Signs Temperature 97.0 F L 02/12/23 05:37 Pulse Rate 98 02/12/23 05:37 Respiratory Rate 18 02/12/23 05:37 Blood Pressure 156/107 H 02/12/23 05:37 Pulse Oximetry 98 02/12/23 05:37 Temperature 97.0 F L 02/12/23 05:37 Pulse Rate 98 02/12/23 06:25 Respiratory Rate 18 02/12/23 06:25 Blood Pressure 156/107 H 02/12/23 05:37 Pulse Oximetry 98 02/12/23 06:05 Oxygen Delivery Room Air 02/12/23 06:05 Medical Decision Making MDM Narrative Medical decision making narrative: -Presentation: 57-year-old male presenting with 1 week of flu-like symptoms. patient has wheezing on exam. Given a DuoNeb treatment,steroids. Chest x-ray and COVID swab obtained. 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 COVID was positive. -Interventions: DuoNeb treatment, 10 mg dexamethasone, Tylenol -Shared decision making / Disposition: patient has COVID. He has poor baseline respiratory status but has stable vital s
[2023-02-12] MEDS: ACETAMINOPHEN 500 MG TABLET 1000 MG PO (06:02)
[2023-02-12 06:05] VITALS: O2SAT 98
[2023-02-12] MEDS: ALBUTEROL SULFATE NEB 2.5 MG/3 ML INH 5 MG INHALATION (06:05)
[2023-02-12] MEDS: IPRATROPIUM BR 0.02% INH SOLN 0.5 MG/2.5 ML VIAL INHALATION (06:06)
[2023-02-12 06:14] VITALS: PULSE 98; RESP 18
[2023-02-12 06:25] VITALS: PULSE 98; RESP 18
[2023-02-12 06:26] LABS: SARS-CoV-2 RNA PCR Positive (Negative)
--- NOTE | 2023-02-12 06:38 | PC.NURSE ---
Patient did ambulation assessment with pulse ox. Patient maintained between 85-100bpm and 94%-99% on RA. Patient tolerated well. ERP notified.
[2023-02-12 06:39] VITALS: PULSE 99; RESP 20; O2SAT 99
== END 2023-02-12 06:47 | disposition home or self-care (01) ==
PROVIDERS: Emergency Provider Emergency Medicine; PCP Internal Medicine
DX: U07.1 COVID-19 (principal); J43.9 Emphysema, unspecified; E78.00 Pure hypercholesterolemia, unspecified; G47.9 Sleep disorder, unspecified; F17.210 Nicotine dependence, cigarettes, uncomplicated; Z79.51 Long term (current) use of inhaled steroids
CPT/HCPCS: 71045; 87635; 94640; 96372; 99283; A9270; J1100

== ENCOUNTER 2023-05-21 09:18 | Outpatient (CLI) | payer OTHER, SELFPAY ==
--- NOTE | ~2023-05-21 | CT_ITS ---
EXAMINATION: CT lung screening DATE: 05/21/2023 09:37 INDICATION: Additional history of nicotine dependence. TECHNIQUE: Computed tomography (CT) of the chest was performed without intravenous contrast. The dose -length product was 250.99 mGy-cm. Automated exposure control and iterative reconstruction technique were employed. COMPARISON: CT dated 05/18/2022 FINDINGS: No significant pleural or pericardial effusion. Small low-density lesion inferior aspect of the right hepatic lobe, most likely benign cyst or hemangioma. No thoracic lymphadenopathy. There is atherosclerosis of the aorta. Small hiatal hernia. 2 mm right u pper lobe nodule unchanged from prior study. No endobronchial lesions. No pneumothorax. There is a 2 mm fissural nodule on the right, stable. No acute osseous abnormality. Mild thoracic spondylosis. IMPRESSION: 1. Lung-RADS category 2: Benign appearance or behavior. Continue annual screening with noncontrast lo w-dose chest CT in 12 months. Reviewed, dictated and finalized at location B. RING SALES MANAGER IMPRESSION: 1. Lung-RADS category 2: Benign appearance or behavior. Continue annual screeni ng with noncontrast low-dose chest CT in 12 months.
== END 2023-05-21 09:19 | disposition home or self-care (01) ==
PROVIDERS: PCP Internal Medicine; Visit Provider Physician Assistant
DX: Z12.2 Encounter for screening for malignant neoplasm of respiratory organs (principal); Z87.891 Personal history of nicotine dependence
CPT/HCPCS: 71271

== ENCOUNTER 2024-07-23 10:58 | Outpatient (CLI) | payer OTHER, MEDICAID, SELFPAY ==
--- NOTE | ~2024-07-23 | CT_ITS ---
CT Scan of the Chest without Contrast: Clinical Indication: Lung cancer screening, nicotine dependence Technique: Contiguous sections were acquired throughout the chest without intravenous contrast. Dose reduction technique was used on this scan by utilizing automated exposure control and iterative recon struction technique. The dose-length product (DLP) was 247.57 mGy-cm. COMPARISON: 05/21/2023 Findings: There is no evidence of any significant mediastinal, hilar or axillary lymphadenopathy. The mediastin al soft tissues appear normal. There is no evidence of pleural or pericardial effusion. The lungs are clear. No pulmonary nodules or infiltrates are noted. Images through the upper abdomen reveal no abnormalities. Impression: Lung RADS 1: Negative. 12 month follow-up screening CT advised. Reviewed, dictated and finalized at location . [employer] COMMUNITY LIAISON Impression: Lung RADS 1: Negative. 12 month follow-up screening CT advised.
--- OUTSIDE RECORDS SUMMARY | 2024-07-24 23:46 | XMS_ITS | Referral Summary ---
Author Organization [facility] Address [address] [place] [address] Care Team Providers Care Java Technical Architect Name Role Phone Nahid Perez Primary Care Provider [phone] Source Comments [facility],non-owned Affiliates and Associated Physician Practices is amultiple site organization consisting of ambulatory clinics and hospital sitesin [place], [place], [place] and [place]. This disclosure is being madepursuant to the Care Everywhere program and may not contain all information available regarding this patient. Last updated 18.[facility] Allergies Active Allergy Reactions Criticality Noted Date Comments Codeine Other 05/28/2018 hyperactive Medications * Be aware that medications may not be up to date on this document. Alwaysverify current medications with the patient. Medication Sig Dispensed Refills Start Date End Date Status PROAIR HFA 108 (90 BASE) MCG/ACT inhaler INL 2 PFS PO Q 4 TO 6 H PRN 5 04/01/2018 Active DULERA 200-5 MCG/ACT inhaler INL 2 PFS PO BID IN THE MORNING AND IN THE MELANI 6 05/12/2018 Active HYDROcodone-acetamino phen (NORCO) 5-325 MG tablet TK 1 T PO Q 8 H PRN P 0 03/13/2018 Active albuterol-ipratropium (DUO-NEB) 0.5-2.5 (3) MG/3ML nebulizer solution USE 1 VIAL IN NEBULIZER QID FOR COPD 2 04/28/2018 Active Active Problems No known active problems Social History Tobacco Use Types Packs/Day Years Used Date Smoking Tobacco: Every Day Smokeless Tobacco: Never Sex and Gender Information Value Date Recorded Sex Assigned at Not on file Gender Identity Not on file Sexual Orientation Not on file Plan of Treatment Not on file Care Teams Java Technical Architect Relationship Specialty Start Date End Date Nahid Perez DO [address] [facility] [address] [place] [address] PCP - General 05/28/18
--- OUTSIDE RECORDS SUMMARY | 2024-07-24 23:46 | XMS_ITS | Patient Health Summary ---
Author Organization [facility] Address [address] [place] [address] Care Team Providers Care Earth Science Teacher Name Role Phone Nahid Perez Primary Care Provider [phone] Note from [facility],non-owned Affiliates and Associated Physician Practices is amultiple site organization consisting of ambulatory clinics and hospital sitesin [place], [place], [place] and [place]. This disclosure is being madepursuant to the Care Everywhere program and may not contain all information available regarding this patient. Last updated 18.[facility] Allergies * Codeine(Other) Medications * Be aware that medications may not be up to date on this document. Alwaysverify current medications with the patient. * PROAIR HFA 108 (90 BASE) MCG/ACT inhaler(Started 04/01/2018) INL 2 PFS PO Q 4 TO 6 H PRN 5 refills left * DULERA 200-5 MCG/ACT inhaler(Started 05/12/2018) INL 2 PFS PO BID IN THE MORNING AND IN THE MELANI 6 refills left * HYDROcodone-acetaminophen (NORCO) 5-325 MG tablet(Started 03/13/2018) TK 1 T PO Q 8 H PRN P * albuterol-ipratropium (DUO-NEB) 0.5-2.5 (3) MG/3ML nebulizer solution(Started 04/28/2018) USE 1 VIAL IN NEBULIZER QID FOR COPD 2 refills left Active Problems No known active problems Social History Tobacco Use Types Packs/Day Years Used Date Smoking Tobacco: Every Day Smokeless Tobacco: Never Sex and Gender Information Value Date Recorded Sex Assigned at Not on file Gender Identity Not on file Sexual Orientation Not on file Procedures * ID BIOPSY, EACH ADDED LESION(Performed 05/28/2018) Performed for Rash and other nonspecific skin eruption * ID BIOPSY OF SKIN LESION(Performed 05/28/2018) Performed for Rash and other nonspecific skin eruption * CULTURE FUNGUS OTHER+FUNGUS SMEAR(Performed 05/28/2018) Performed for Rash and other nonspecific skin eruption * CULTURE AFB+SMEAR(Performed 05/28/2018) Performed for Rash and other nonspecific skin eruption * CULTURE TISSUE+GRAM STAIN(Performed 05/28/2018) Performed for Rash and other nonspecific skin eruption * DERMATOPATHOLOGY(Performed 05/28/2018) Performed for Rash and other nonspecific skin eruption Results * ID BIOPSY OF SKIN LESION, ID BIOPSY, EACH ADDED LESION (05/28/2018 1:29 PM PRODUCT MARKETING CONSULTANT) Narrative Nat Soto MD - 05/28/2018 1:29 PM PRODUCT MARKETING CONSULTANT Nat Soto MD ? 05/28/2018 ??1:29 PM Risks, benefits and alternatives to punch biopsy were discussed with the patient. Verbal consent was obtained. Location: right forearm x 2 Punch biopsy: 4mm Skin prep: Alcohol Anesthesia: 1% lidocaine with epinephrine Closure: 4-0 nylon suture Dressing and wound care discussed. Patient agrees to phone call for results and message if not available. Nat Soto MD Nat Soto MD PROCEDURE/MINOR [facility] RGICAL ORDERABLES * CULTURE FUNGUS OTHER+FUNGUS SMEAR (05/28/2018 1:12 PM PRODUCT MARKETING CONSULTANT) Culture No fungus isolated LATIA 06/24/2018 7:36 AM PRODUCT MARKETING CONSULTANT [facility] Fungus Smear No yeast or hyphae seen 06/24/2018 7:36 AM PRODUCT MARKETING CONSULTANT [facility] Microbiology TISSUE SPECIMEN / Unknown Collection / Unknown 05/28/2018 1:12 PM PRODUCT MARKETING CONSULTANT 05/28/2018 5:46 PM PRODUCT MARKETING CONSULTANT Nat Soto MD LAB - MICROBIOLOGY ORDERABLES [facility] [address] [place] [address], [facility] [phone] * CULTURE TISSUE+GRAM STAIN (05/28/2018 1:11 PM PRODUCT MARKETING CONSULTANT) Culture No growth LATIA 06/05/2018 10:09 AM [facility] Gram Stain Light Red blood cells 06/05/2018 10:09 AM [facility] Gram Stain Rare White blood cells 06/05/2018 10:09 AM [facility] Gram Stain No organisms seen 06/05/2018 10:09 AM [facility] MICROBIOLOGY Microbiology TISSUE SPECIMEN / Unknown Collection / Unknown 05/28/2018 1:11 PM PRODUCT MARKETING CONSULTANT 05/28/2018 5:46 PM PRODUCT MARKETING CONSULTANT Nat Soto MD LAB - MICROBIOLOGY ORDERABLES Performing Organization Address [facility] Co de Phone Number [facility] [address] [place] [address], [facility] [phone] * CULTURE AFB+SMEAR (05/28/2018 1:11 PM PRODUCT MARKETING CONSULTANT) Culture No acid-fast bacillus isolated 07/08/2018 4:01 AM [facility] AFB Smear No acid-fast bacilli seen 07/08/2018 4:01 AM [facility] Microbiology TISSUE SPECIMEN / Unknown Collection / Unknown 05/28/2018 1:11 PM PRODUCT MARKETING CONSULTANT 05/28/2018 5:46 PM PRODUCT MARKETING CONSULTANT Nat Soto MD LAB - MICROBIOLOGY ORDERABLES Performing Organization Address [facility] de Phone Number [facility] [address] [place] [address], [facility] [phone] * DERMATOPATHOLOGY (05/28/2018 12:00 AM PRODUCT MARKETING CONSULTANT) Case Report Dermatopathology Report ? Case: [id number] ? Authorizing Provider: ??Nat Soto MD ?Collected: ? 05/28/2018 12:00 AM ? Ordering Location: ? [facility] ?Received: ?05/29/2018 10:26 AM ? Dermatology ? Pathologist: ? Homar Mcmillan MD ? Specimen: ?Skin, right forearm ? 4:55 PM [facility]ERMATOPATH[facility]ORATORY Final Diagnosis Specimen A. 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 The specimen consists of a punch biopsy measuring 4x4x7 mm. Jar 0. 4:55 PM [facility] DERMATOPATHOLOGY [facility]ORATORY Microscopic Description Specimen A. SKIN, right forearm: There is psoriasiform hyperplasia of the epidermis with focal parakeratosis and spongiosis. There is mild hyperkeratosis. There is a superficial, mainly lymphohistiocytic inflammatory infiltrate. No granulomatous inflammation is appreciated. COMMENT: The histological differential diagnosis includes a prurigo nodule and a chronic eczematous dermatitis. 8 4:55 PM [facility] DERMATOPATHOLOGY LABORATORY Disclaimer An external and internal positive and negative controls are appropriate for the histochemical, immunohistochemical and immunofluorescence stain(s) in this case (if any), except where stated explicitly. The performance characteristics of the stain(s) cited in this report were developed and its performance characteristic determined by the Dermatopathology Laboratory at [facility]. These tests need not be, and therefore are not, approved by the [place] Food and Drug Administration. The tests are used for clinical purposes. Billing Codes Specimen Charges Stain Charges 51509 1 8 4:55 PM [facility] DERMATOPATHOLOGY LABORATORY Embedded Images 8 4:55 PM [facility] DERMATOPATHOLOGY [facility]ORATORY Pathology/Cytolog y TISSUE SPECIMEN FROM SKIN / Unknown 05/28/2018 05/29/2018 10:26 AM PRODUCT MARKETING CONSULTANT Nat Soto MD LAB - PATHOLOGY/CY TOLOGY ORDERABLES DERMATOPATHOLOGY LABORATORY [facility] - Department of Dermatology [address] Lab [address] [phone] Care Teams Earth Science Teacher Relationship Specialty Start Date End Date Nahid Perez DO [address] [place] [address] PCP - General 05/28/18
--- OUTSIDE RECORDS SUMMARY | 2024-07-24 23:46 | XMS_ITS | Continuity of Care Document ---
Author Organization [facility] Address [address] [place] [address] Phone Care Team Providers Care [place] Nurse Name Role Phone Janneth Raman Unavailable Unavailable Advance Directives Directive Yes / No Effective Date File Name No Information Encounters Encounter Description Practice Location Reason(s) For Visit Diagnoses Date Provider Providers Copied on Encounter [facility], [address], [place], [place], [id number], [place] tel:[phone] [facility] No Information [address], [place], [address], [place]. tel:[phone] Family History Family Member Type Diagnosis Age At Onset No Information Payers Payer name Insurance type Covered democrat ID Authoriza tion(s) [employer] [id number] Social History Type Description Quantity Date Captured Comments Sex Male Smoking Status No Information Chief Complaint And Reason For Visit No Information Reason For Referral Reason For Referral No Information History Of Present Illness Encounter Date Complaint History Of Prese nt Illness No Information Functional Status Date Functional Assessmen t No Information Instructions Date Instruction Additional Infor mation No Information Assessments Type Assessment Date No Information Patient Care Teams Name Effective Dates (start - stop) Status Members No Information
--- OUTSIDE RECORDS SUMMARY | 2024-07-24 23:46 | XMS_ITS | Clinical Summary ---
Author Organization [facility] Address [address] [place] [address] Care Team Providers Care Full Service Supervisor Name Role Phone Nahid Perez Primary Care Provider [phone] Source Comments [facility],non-owned Affiliates and Associated Physician Practices is amultiple site organization consisting of ambulatory clinics and hospital sitesin [place], [place], [place] and [place]. This disclosure is being madepursuant to the Care Everywhere program and may not contain all information available regarding this patient. Last updated 18.[facility] Allergies Active Allergy Reactions Criticality Noted Date [...] Orientation Not on file Plan of Treatment Health Maintenance Due Date Last Done Comments COLOGUARD (AGES 45-75) - COL ON CA SCREENING 1964 COLON MONITORING 1964 COLONOSCOPY - COLON CA SCREENING 1964 CT COLONOGRAPHY - COLON CA SCREENING 1964 Colorectal Cancer Screening 1964 FIT - COLON CA SCREENING 1964 FLEX SIG - COLON CA SCREENING 1964 LIPID TESTING 1964 HIV SCREENING 1979 HEPATITIS C SCREENING 05/06/1982 DTAP/TDAP/TD VACCINES (1 - Tdap) 1983 PNEUMOCOCCAL VACCINE 50+ (1 of 2 - PCV) 1983 PNEUMOCOCCAL VACCINE (1 of 2 - PCV) 1983 ZOSTER VACCINE (1 of 2) 2014 COVID-19 VACCINE ( - 2023-2 5 season) 2024 INFLUENZA VACCINE (#1) 2024 DEPRESSION SCREENING 07/02/2024 Respiratory Syncytial Virus (RSV) Vaccine Pt: or over 60 yrs (1 - 1-dose 75+ series) 2039 HEPATITIS B VACCINE Aged Out No longe r eligible based on patient's age to complete this topic HIB VACCINE Aged Out No longer eligi ble based on patient's age to complete this topic HPV VACCINE Aged Out No longer eligi ble based on patient's age to complete this topic MENINGOCOCCAL (Group B) VACCINE Aged Out No longer eligible based on patient's age to complete this topic MENINGOCOCCAL VACCINE Aged Out No miguelina radha eligible based on patient's age to complete this topic Care Teams Full Service Supervisor Relationship Specialty Start Date End Date Nahid Perez DO [address] [place], [place] [id number] PCP - General 05/28/18
== END 2024-07-23 10:59 | disposition home or self-care (01) ==
LOC: ANHIMG 11:05
PROVIDERS: Visit Provider Nurse Practitioner Family
DX: Z12.2 Encounter for screening for malignant neoplasm of respiratory organs (principal); Z87.891 Personal history of nicotine dependence
CPT/HCPCS: 71271

== ENCOUNTER 2024-08-28 07:40 | Outpatient (CLI) | payer OTHER, SELFPAY ==
[2024-08-28 08:24] LABS: Hematocrit 47.8 % (42.0-52.0); Hemoglobin 16.2 g/dL (14.0-18.0); Mean Corpuscular HGB Conc 33.9 g/dl (32-36); Mean Corpuscular Hemoglobin 31.3 pg (26-34); Mean Corpuscular Volume 92.3 fl (80-100); Mean Platelet Volume 9.7 fl (7.4-10.4); Platelet Count Result 317 k/mm3 (150-375); Red Blood Count 5.18 M/mm3 (4.6-6.20); Red Cell Distribution Width 12.8 % (11.5-14.5); White Blood Count 7.9 K/mm3 (4.5-10.0)
[2024-08-28 08:50] LABS: Alanine Aminotransferase 16 U/L (6-50); Albumin Level 3.9 g/dL (3.5-5.1); Alkaline Phosphatase 78 U/L (38-126); Anion Gap 7 mmol/L (4-12); Aspartate Amino Transferase 21 U/L (17-59); Bilirubin,Total 0.8 mg/dL (0.2-1.3); Blood Urea Nitrogen 11 mg/dL (9-20); Calcium 9.3 mg/dL (8.4-10.2); Carbon Dioxide 28 mmol/L (22-30); Chloride 106 mmol/L (98-107); Cholesterol 202 mg/dL (0-200); Estimated Glomerular Filt Rate 55; Glucose 88 mg/dL (65-110); HDL Direct 41 mg/dL; Potassium 3.7 mmol/L (3.4-5.0); Sodium 141 mmol/L (137-145); Triglycerides 115 mg/dL (<150)
[2024-08-28 15:39] LABS: LDL Cholesterol Direct 141 mg/dL
[2024-08-28 15:57] LABS: Prostate Specific Antigen 1.1 ng/mL (< OR = 4.0)
== END 2024-08-28 07:41 | disposition home or self-care (01) ==
LOC: ANHLAB 07:41
PROVIDERS: PCP Nurse Practitioner; Visit Provider Nurse Practitioner
DX: E78.5 Hyperlipidemia, unspecified (principal); E03.9 Hypothyroidism, unspecified; Z79.899 Other long term (current) drug therapy; Z12.5 Encounter for screening for malignant neoplasm of prostate
CPT/HCPCS: 36415; 80053; 80061; 84153; 84443; 85027; G0103

== ENCOUNTER 2024-12-26 16:26 | Emergency (ER) | payer OTHER, SELFPAY ==
--- NOTE | 2024-12-26 16:27 | ED_ITS ---
HPI - Skin/Abscess/Foreign Bdy General Chief complaint: Skin/Abscess/Foreign Body Stated complaint: bite on right hip Time Seen by Provider: 12/26/24 16:27 Source: patient Mode of arrival: ambulatory Limitations: no limitations History of Present Illness HPI narrative: Ger is a 59-year-old male patient presenting to the clinic today with complaints of a possible spider bite on his right posterior hip. He reports he noticed it 3-4 days ago. It started out as a itchy area however now it is painful, red, and erythemic and states that there was a hole in the center. Wound is not draining. Denies any fevers, chills, body aches. He is not diabetic. Rates pain currently at 3/10. Has not taken any medications to treat his symptoms. Related Data Allergies Allergy/AdvReac Type Severity Reaction Status Date / Time codeine AdvReac Jittery Verified 12/26/24 16:27 Review of Systems Review of Systems: Pertinent positives per HPI. Patient denies any fever, chills, rash, headache, visual changes, dizziness, cough, runny nose, sore throat, shortness of breath, chest pain, palpitations, nausea, vomiting, diarrhea, constipation, abdominal pain, or any urinary issues. COUNTS INCLUDE 234 BEDS AT [facility] Past Medical History Medical History BMI 36.0-36.9,adult Headache [id number] Wheezing Viral syndrome URI, acute Thrombosed external hemorrhoid Perirectal abscess Other hyperlipidemia Other fatigue Other chronic pain Other asthma Occupational lung disease Gastro-esophageal reflux disease without esophagitis Flank pain Encounter for screening for malignant neoplasm of prostate Dietary counseling and surveillance (09/29/15) Cough Colon cancer screening Chronic pain of both knees Bronchitis Benign skin lesion of multiple sites Benign prostatic hyperplasia with urinary frequency Allergic rhinitis, unspecified Abscess, umbilical Fistula Asthma-COPD overlap syndrome Pure hypercholesterolemia, unspecified Sleep disturbance, unspecified Tobacco abuse Family History Family History Father Carcinoma of colon Family history of Alzheimer's disease Mother Carcinoma of colon, Onset Age: 78 from liver cancer Mar 2020 Liver cancer Sibling No problems noted. Other Diabetes mellitus Family history of cardiovascular disease Family history of malignant neoplasm Social History Social History Smoking packs per day: 1 Smoking cigarettes per day: 20.0 Years smoked: 25 Smoking pack-years: 25.00 Smoking status: Current every day smoker Tobacco type: cigarettes Second hand tobacco smoke exposure: No Alcohol intake: current Substance use: never Substance use type: does not use Do You Feel Safe in your Home?: Yes Lack of Transportation: No Lack of Food: Sometimes True Current Housing: I Have Housing Concerned About Future Housing: No Difficulty Paying Gas/Electric Bills: YES Difficulty Paying for Meds: No Currently Unemployed: YES Education: High School Diploma/GED Difficulty w/ Childcare or Family Care: No Living arrangements: with family Occupation/Education: unemployed 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 There is no relevant family history pertinent to the patient complaint. Exam Narrative: General: Well-developed, well nourished, in no apparent distress Head: Normocephalic, atraumatic. Cardio: Regular rate and rhythm, s1 and s2 normal, no murmur appreciated. Resp: Clear to auscultation bilaterally, no rhonchi, rales, wheezing or rubs. Integumentary: [place], warm, and dry, suspected insect bite to the right glut with induration measuring 3.5cmx 3 cm and localized redness measuring 4 cm x 8 cm- area is non fluctuant, red and erythemic Course Course Emergency Course: Portions of this record may have been created with voice recognition software. Level of Care: Express Care Visit Vital Signs Vital signs: Vital signs reviewed MDM - Skin/Abscess/Foreign Bdy MDM Narrative Medical decision making narrative: At the time of visit patient is resting comfortably on the exam table. Patient appears to be nontoxic. Plan: I suspect patient has an infected insect bite/cellulitis to the right glute. No palpable abscess. No drainage. Unable to obtain wound culture. Will place patient on clindamycin. Recommend warm compresses and Tylenol and ibuprofen as needed for pain. Follow up with his PCP in 3 days for wound check. Go to the emergency room if symptoms worsen. Patient is not diabetic. Supportive measures were discussed with the patient and they voiced u nderstanding discharge instructions and agrees to treatment plan. Return precautions reviewed Differential Diagnosis Differential diagnosis: Likely abscess of skin or subcutaneous tissue, viral exanthem, dermatophytosis, urticaria, herpes zoster, allergic reaction to drug, cellulitis, eczema, insect bites, impetigo and contact dermatitis Discharge Plan Discharge Clinical Impression: Infected insect bite Qualifiers: Encounter type: initial encounter Qualified Code(s): W57.XXXA - Bitten or stung by nonvenomous insect and other nonvenomous arthropods, initial encounter Patient Disposition: Home Condition: Stable Instructions: Antibiotic Form, Cellulitis (ED) Additional Instructions: Keep wound covered if draining Keep wound clean and dry Take clindamycin as prescribed May take Tylenol/Motrin as needed for pain Recommend taking a daily probiotic such as active probiotic or eating yogurt-do this 2 hours before or 2 hours after taking 1 of the doses of antibiotics Warm moist compresses 4 times daily-hold for approximately 15 minutes Watch for signs and symptoms of worsening infection-fever, increase in redness, streaking, swelling, purulent discharge, or increase in pain. Follow up with your PCP in 3 days for wound check Go to the emergency room if symptoms worsen. Patient Language: Macedonian Prescriptions: New clindamycin HCl [Cleocin HCl] 300 mg capsule 300 mg PO Q8H 10 Days Qty: 30 0RF No Action (DME) peak flow meter Device See Rx Instructions .Route Qty: 1 0RF Rx Instructions: As directed albuterol sulfate 2.5 mg /3 mL (0.083 %) solution for nebulization 2.5 mg inhalation Q4-6H PRN (Reason: shortness of breath or wheezing) Qty: 180 3RF acetaminophen 500 mg tablet 1,000 mg PO TID PRN (Reason: andres) 7 Days Qty: 42 0RF albuterol sulfate 2.5 mg /3 mL (0.083 %) solution for nebulization 2.5 mg INHALATION QID PRN (Reason: shortness of breath or wheezing) Qty: 360 3RF (DME) nebulizer accessories Misc See Rx Instructions .Route Qty: 10 0RF Rx Instructions: As directed ipratropium-albuterol 0.5 mg-3 mg(2.5 mg base)/3 mL solution for nebulization See Rx Instructions .ROUTE .COMPLEX Qty: 180 2RF Dose Instruction: USE 3 ML VIA NEBULIZER TWICE DAILY NEEDED FOR SHORTNESS OF BREATH OR WHEEZING Rx Instructions: USE 3 ML VIA NEBULIZER TWICE DAILY NEEDED FOR SHORTNESS OF BREATH OR WHEEZING albuterol sulfate 90 mcg/actuation HFA aerosol inhaler See Rx Instructions .ROUTE .COMPLEX Qty: 6.7 3RF Dose Instruction: INHALE 1 TO 2 PUFFS BY MOUTH EVERY 4 TO 6 HOURS NEEDED FOR SHORTNESS OF BREATH OR WHEEZING Rx Instructions: INHALE 1 TO 2 PUFFS BY MOUTH EVERY 4 TO 6 HOURS NEEDED FOR SHORTNESS OF BREATH OR WHEEZING budesonide-formoterol 160-4.5 mcg/actuation HFA aerosol inhaler See Rx Instructions .ROUTE .COMPLEX Qty: 10.2 5RF Dose Instruction: INHALE 2 PUFFS BY MOUTH TWICE DAILY. RINSE MOUTH AND SPIT AFTER EACH USE Rx Instructions: INHALE 2 PUFFS BY MOUTH TWICE DAILY. RINSE MOUTH AND SPIT AFTER EACH USE Follow-up/Referrals: UNKNOWN,DOCTOR [Non-Staff] - Time of Disposition: 16:44 Quality NIHSS Nursing Documentation ED NIHSS nursing documentation: reviewed/agree
[2024-12-26 16:30] VITALS: BP 144/108; PULSE 80; RESP 14; TEMP 36.6; O2SAT 97
== END 2024-12-26 16:54 | disposition home or self-care (01) ==
PROVIDERS: Emergency Provider Nurse Practitioner Family; PCP Nurse Practitioner
DX: T63.301A Toxic effect of unspecified spider venom, accidental (unintentional), initial encounter (principal); F17.210 Nicotine dependence, cigarettes, uncomplicated
CPT/HCPCS: 99213; G0463

== ENCOUNTER 2024-12-29 08:47 | Emergency (ER) | payer OTHER, SELFPAY ==
--- NOTE | ~2024-12-29 | US_ITS ---
EXAMINATION: US soft tissue abdomen DATE: 12/29/2024 10:53 INDICATION: Spider bite at the right lower back/buttock TECHNIQUE: Multiple grayscale and Doppler ultrasound images of the region of concern at the inferior right back and right buttock were obtained. COMPARISON: None FINDINGS soft tissue IMPRESSION: Unremarkable appearance to the subcutaneous fat and underlying musculature at the region of concern. No abnormal masses or fluid collections identified. Reviewed, dictated and finalized at location B.
[2024-12-29 08:48] VITALS: TEMP 36.4
[2024-12-29 08:52] VITALS: BP 152/109; PULSE 92; RESP 19; O2SAT 94
[2024-12-29 10:00] VITALS: BP 122/88; PULSE 80; RESP 18; O2SAT 97
--- NOTE | 2024-12-29 10:29 | ECG_ITS ---
Test Date: 2024-12-29 10:59:58 Measurements Intervals [place] Rate: 74 P: 67 CO: 133 QRS: 42 QRSD: 85 T: 51 QT: 366 QTc: 408 Interpretive Statements SINUS RHYTHM EARLY PRECORDIAL R/S TRANSITION NONSPECIFIC ST-T WAVE ABNORMALITY- INFERIOR LEADS BORDERLINE ECG No previous ECG available for comparison Electronically Signed On 12-29-2024 11:35:35 CDT by Khoi Francois D.O.
[2024-12-29 10:30] VITALS: BP 136/88; PULSE 78; RESP 18; O2SAT 96
--- NOTE | 2024-12-29 10:32 | ED_ITS ---
HPI - Skin/Abscess/Foreign Bdy General Chief complaint: Skin/Abscess/Foreign Body Stated complaint: spider bite to right hip Time Seen by Provider: 12/29/24 10:22 History of Present Illness HPI narrative: Patient is a 59 year year old male who presents to the ER with complaints of a ?spider bite. He reports he went to urgent care on Sunday when he first noticed the bite. Patient reports he has been taking the clindamycin as prescribed but the site has continued to grow. He denies any recent fevers, belly pain, or urinary symptoms. Patient endorses mild back pain around the site. He reports the site feels warm to him. Patient endorses a history of COPD. He endorses slight drainage from the site. Related Data Allergies Allergy/AdvReac Type Severity Reaction Status Date / Time codeine AdvReac Jittery Verified 12/29/24 08:51 Review of Systems 2 Review of Systems: All systems reviewed & are unremarkable except as noted in HPI and below PMFSH Past Medical History Medical History BMI 36.0-36.9,adult Headache Qatxant-pq-zcu Wheezing Viral syndrome URI, acute Thrombosed external hemorrhoid Perirectal abscess Other hyperlipidemia Other fatigue Other chronic pain Other asthma Occupational lung disease Gastro-esophageal reflux disease without esophagitis Flank pain Encounter for screening for malignant neoplasm of prostate Dietary counseling and surveillance (09/29/15) Cough Colon cancer screening Chronic pain of both knees Bronchitis Benign skin lesion of multiple sites Benign prostatic hyperplasia with urinary frequency Allergic rhinitis, unspecified Abscess, umbilical Fistula Asthma-COPD overlap syndrome Pure hypercholesterolemia, unspecified Sleep disturbance, unspecified Tobacco abuse Family History Family History Father Carcinoma of colon Family history of Alzheimer's disease Mother Carcinoma of colon, Onset Age: 78 from liver cancer Mar 2020 Liver cancer Sibling No problems noted. Other Diabetes mellitus Family history of cardiovascular disease Family history of malignant neoplasm Social History Social History Smoking packs per day: 1 Smoking cigarettes per day: 20.0 Years smoked: 25 Smoking pack-years: 25.00 Smoking status: Current every day smoker Tobacco type: cigarettes Second hand tobacco smoke exposure: No Alcohol intake: current Substance use: never Substance use type: does not use Do You Feel Safe in your Home?: Yes Lack of Transportation: No Lack of Food: Sometimes True Current Housing: I Have Housing Concerned About Future Housing: No Difficulty Paying Gas/Electric Bills: YES Difficulty Paying for Meds: No Currently Unemployed: YES Education: High School Diploma/GED Difficulty w/ Childcare or Family Care: No Living arrangements: with family Occupation/Education: unemployed 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 HEAD: Normocephalic, atraumatic. NECK: Supple. No adenopathy, no masses. RESPIRATORY: Airway patent, respirations nonlabored. Mild wheezing to R lower lobe upon auscultation (baseline for pt). No rales, rhonchi, wheezing. CARDIOVASCULAR: Regular rate and rhythm without murmurs, rubs, or gallops. Peripheral pulses 2+ and equal bilaterally. ABDOMINAL: Soft, nontender, nondistended, no hepatosplenomegaly. Normoactive BS. MUSCULOSKELETAL: Moves all extremities. Strength/ROM intact without gross deformities. SKIN: Warm, dry, normal color. Pt's R flank wound induration of 14.5cm x 5 cm and localized redness measuring 17.5 cm x 8 cm-area, non fluctuant, red and erythemic. NEURO: A&O X3. Speech clear. Cranial nerves II-XII intact. No ataxic movements. PSYCHIATRIC: Appropriate mood and affect. Normal interaction. Course Vital Signs Vital signs: Vital Signs Temperature 97.6 F 12/29/24 08:48 Temperature 97.6 F 12/29/24 08:48 Pulse Rate 74 12/29/24 10:45 Respiratory Rate 18 12/29/24 10:45 Blood Pressure 122/80 12/29/24 10:45 Pulse Oximetry 97 12/29/24 10:45 MDM - Skin/Abscess/Foreign Bdy MDM Narrative Medical decision making narrative: Patient is a 59 year year old male who presents to the ER with complaints of a ?spider bite. He reports he went to urgent care on Sunday when he first noticed the bite. Patient reports he has been taking the clindamycin as prescribed but the site has continued to grow. He denies any recent fevers, belly pain, or urinary symptoms. Patient endorses mild back pain around the site. He reports the site feels warm to him. Patient endorses a history of COPD. He endorses slight drainage from the site. Labs Ordered: CBC, CMP, PTT, INR, lactic acid, blood cultures, CRP Imaging Ordered: Ultrasound soft tissue abdomen Medications Ordered: 3 L normal saline IV bolus, Ancef 1 g IV, Tylenol 1 g p.o. Results: Pt's US indicates Unremarkable appearance to the subcutaneous fat and underlying musculature at the region of concern. No abnormal masses or fluid collections identified. Patient's CBC indicates a normal white blood cell count of 9.8. His coags were normal. Patient's chemistry indicates a chloride of 109, BUN of 6. His CRP indicates 5.1. Diagnosis: Cellulitis 1400-patient has a headache and is requesting Tylenol. On Sunday, three days ago, pt's wound measured (right flank) induration of 3.5cm x 3 cm and localized redness measuring 4 cm x 8 cm-area, non fluctuant, red and erythemic. Today pt's wound measures induration of 14.5cm x 5 cm and localized redness measuring 17.5 cm x 8 cm-area, non fluctuant, red and erythemic. Patient Education/Shared MDM: Results of lab work and imaging shared with patient. Patient strongly advised to take his new antibiotic as prescribed and maintain hydration status upon discharge. He should follow-up with his PCP in 2- 3 days for a wound re-check. He was given a dose of IV Ancef here in the ER and will be discharged home with a prescription for Augmentin. Strict return precautions provided. Patient verbalized understanding and is in agreement with plan. Vital signs stable at time of discharge. All questions answered. Differential Diagnosis Differential diagnosis: Likely abscess of skin or subcutaneous tissue, urticaria, allergic reaction to drug, cellulitis and contact dermatitis Lab Data Attestation: I reviewed the patient's lab results. 12/29/24 11:14 12/29/24 11:14 Labs: Lab Results 12/29/24 Range/Units 11:14 WBC 9.8 (4.5-10.0) K/mm3 RBC 4.97 (4.6-6.20) M/mm3 Hgb 15.2 (14.0-18.0) g/dL Hct 45.4 (42.0-52.0) % MCV 91.3 (80-100) fl MCH 30.6 (26-34) pg MCHC 33.5 (32-36) g/dl RDW 13.5 (11.5-14.5) % Plt Count 267 (150-375) k/mm3 MPV 9.7 (7.4-10.4) fl Immature Gran % (Auto) 0.4 (0-0.5) % Neut % (Auto) 74.1 H (45.5-73.1) % Lymph % (Auto) 11.8 L (18.3-44.2) % [place] % (Auto) 11.6 H (2.6-8.5) % Eos % (Auto) 1.5 (0-4.4) % Baso % (Auto) 0.6 (0.2-1.2) % Lymph # (Auto) 1.16 (0.9-3.2) K/mm3 [place] # (Auto) 1.1 H (0.1-0.6) K/mm3 Eos # (Auto) 0.2 (0-0.3) K/mm3 Baso # (Auto) 0.1 (0.0-0.1) K/mm3 Abs Immat Gran (auto) 0.04 H (0.00-0.031) K/mm3 Absolute Neuts (auto) 7.3 H (1.3-6.7) K/mm3 Absolute Nucleated RBC 0.000 (0.0-0.012) K/mm3 Nucleated RBC % 0.0 (0.0-0.2) % PT 13.8 (11.1-14.7) Seconds INR 1.1 APTT 32.8 (22.3-36.8) Seconds Sodium 138 (137-145) mmol/L Potassium 3.7 (3.4-5.0) mmol/L Chloride 109 H (98-107) mmol/L Carbon Dioxide 24 (22-30) mmol/L Anion Gap 5 (4-12) mmol/L BUN 6 L D (9-20) mg/dL Creatinine 1.12 (0.7-1.3) mg/dL Estim Creat Clear Calc 79 ml/min Estimated GFR > 60 (59 - ) Glucose 101 (65-110) mg/dL Lactic Acid 1.0 (0.7-2.0) mmol/L Calcium 9.1 (8.4-10.2) mg/dL Total Bilirubin 0.8 (0.2-1.3) mg/dL AST 19 (17-59) U/L ALT 17 (6-50) U/L Alkaline Phosphatase 68 (38-126) U/L C-Reactive Protein 5.1 H (<1.0) mg/dL Total Protein 6.5 (6.3-8.2) g/dL Albumin 3.6 (3.5-5.1) g/dL Imaging Data Attestation: I personally reviewed and interpreted this imaging study as follows: Radiologist's impression: Unremarkable appearance to the subcutaneous fat and underlying musculature at the region of concern. No abnormal masses or fluid collections identified Discharge Plan Discharge Clinical Impression: Cellulitis Patient Disposition: Home Condition: Stable Instructions: Antibiotic Form, Cellulitis (ED) Additional Instructions: Luckily your blood work and imaging did not indicate sepsis today. Please have a low threshold to return to the ER. Return to the ER with any worsening symptoms. Follow-up with primary care provider in 2-3 days. Take all medications as prescribed, including regularly scheduled medications. Complete your full dose of antibiotics as prescribed. Patient Language: Ecuadorean Prescriptions: New amoxicillin-pot clavulanate 875-125 mg tablet 1 tablet PO Q12H Qty: 20 0RF No Action clindamycin HCl [Cleocin HCl] 300 mg capsule 300 mg PO Q8H 10 Days Qty: 30 0RF (DME) peak flow meter Device See Rx Instructions .Route Qty: 1 0RF Rx Instructions: As directed albuterol sulfate 2.5 mg /3 mL (0.083 %) solution for nebulization 2.5 mg inhalation Q4-6H PRN (Reason: shortness of breath or wheezing) Qty: 180 3RF acetaminophen 500 mg tablet 1,000 mg PO TID PRN (Reason: andres) 7 Days Qty: 42 0RF albuterol sulfate 2.5 mg /3 mL (0.083 %) solution for nebulization 2.5 mg INHALATION QID PRN (Reason: shortness of breath or wheezing) Qty: 360 3RF (DME) nebulizer accessories [facility] [place] See Rx Instructions .Route Qty: 10 0RF Rx Instructions: As directed ipratropium-albuterol 0.5 mg-3 mg(2.5 mg base)/3 mL solution for nebulization See Rx Instructions .ROUTE .COMPLEX Qty: 180 2RF Dose Instruction: USE 3 ML VIA NEBULIZER TWICE DAILY NEEDED FOR SHORTNESS OF BREATH OR WHEEZING Rx Instructions: USE 3 ML VIA NEBULIZER TWICE DAILY NEEDED FOR SHORTNESS OF BREATH OR WHEEZING albuterol sulfate 90 mcg/actuation HFA aerosol inhaler See Rx Instructions .ROUTE .COMPLEX Qty: 6.7 3RF Dose Instruction: INHALE 1 TO 2 PUFFS BY MOUTH EVERY 4 TO 6 HOURS NEEDED FOR SHORTNESS OF BREATH OR WHEEZING Rx Instructions: INHALE 1 TO 2 PUFFS BY MOUTH EVERY 4 TO 6 HOURS NEEDED FOR SHORTNESS OF BREATH OR WHEEZING budesonide-formoterol 160-4.5 mcg/actuation HFA aerosol inhaler See Rx Instructions .ROUTE .COMPLEX Qty: 10.2 5RF Dose Instruction: INHALE 2 PUFFS BY MOUTH TWICE DAILY. RINSE MOUTH AND SPIT AFTER EACH USE Rx Instructions: INHALE 2 PUFFS BY MOUTH TWICE DAILY. RINSE MOUTH AND SPIT AFTER EACH USE Follow-up/Referrals: Colin Mcgrath APRN [Primary Care Provider] - Time of Disposition: 14:13
[2024-12-29 10:45] VITALS: BP 122/80; PULSE 74; RESP 18; O2SAT 97
--- NOTE | 2024-12-29 11:00 | PC.NURSE ---
Report given to MURRAY Loera
[2024-12-29] MEDS: ceFAZolin 1 GM/NS 50 ML 1 GM/50 ML BAG IVPB (11:17)
[2024-12-29] MEDS: SODIUM CHLORIDE 0.9% IV 1,000 ML 999 ML IV CONT ×3 (11:17→12:07)
[2024-12-29 11:25] LABS: Basophils Absolute Auto 0.1 K/mm3 (0.0-0.1); Basophils Percent Auto 0.6 % (0.2-1.2); Eosinophils Absolute Auto 0.2 K/mm3 (0-0.3); Eosinophils Percent Auto 1.5 % (0-4.4); Hematocrit 45.4 % (42.0-52.0); Hemoglobin 15.2 g/dL (14.0-18.0); Immature Granulocyte Absolute 0.04 K/mm3 (0.00-0.031); Immature Granulocyte Percent A 0.4 % (0-0.5); Lymphocytes Absolute Auto 1.16 K/mm3 (0.9-3.2); Lymphocytes Percent Auto 11.8 % (18.3-44.2); Mean Corpuscular HGB Conc 33.5 g/dl (32-36); Mean Corpuscular Hemoglobin 30.6 pg (26-34); Mean Corpuscular Volume 91.3 fl (80-100); Mean Platelet Volume 9.7 fl (7.4-10.4); Monocytes Absolute Auto 1.1 K/mm3 (0.1-0.6); Monocytes Percent Auto 11.6 % (2.6-8.5); Neutrophils Absolute Auto 7.3 K/mm3 (1.3-6.7); Neutrophils Percent Auto 74.1 % (45.5-73.1); Platelet Count Result 267 k/mm3 (150-375); Red Blood Count 4.97 M/mm3 (4.6-6.20); Red Cell Distribution Width 13.5 % (11.5-14.5); White Blood Count 9.8 K/mm3 (4.5-10.0)
[2024-12-29 11:36] LABS: Alanine Aminotransferase 17 U/L (6-50); Albumin Level 3.6 g/dL (3.5-5.1); Alkaline Phosphatase 68 U/L (38-126); Anion Gap 5 mmol/L (4-12); Aspartate Amino Transferase 19 U/L (17-59); Bilirubin,Total 0.8 mg/dL (0.2-1.3); Blood Urea Nitrogen 6 mg/dL (9-20); CRP. 5.1 mg/dL (<1.0); Calcium 9.1 mg/dL (8.4-10.2); Carbon Dioxide 24 mmol/L (22-30); Chloride 109 mmol/L (98-107); Estimated CRCL calculation 79 ml/min; Estimated Glomerular Filt Rate > 60; Glucose 101 mg/dL (65-110); Potassium 3.7 mmol/L (3.4-5.0); Sodium 138 mmol/L (137-145); Total Protein 6.5 g/dL (6.3-8.2)
[2024-12-29 11:40] LABS: INR 1.1; Partial Thromboplastin Time 32.8 Seconds (22.3-36.8); Prothrombin Time 13.8 Seconds (11.1-14.7)
--- OUTSIDE RECORDS SUMMARY | 2024-12-29 11:54 | XMS_ITS | Clinical Summary ---
Author Organization [facility] Address [address] [place] [address] Care Team Providers Care Rn Imaging Name Role Phone Nahid Perez Primary Care Provider [phone] Source Comments [facility],non-owned Affiliates and Associated Physician Practices is amultiple site organization consisting of ambulatory clinics and hospital sitesin [place], [place] and [place]. This disclosure is being madepursuant to the Care Everywhere program and may not contain all information available regarding this patient. Last updated 18.[facility] Allergies Active Allergy Reactions Criticality Noted Date Comments Codeine Other 05/28/2018 hyperactive Medications * Be aware that medications may not be up to date on this document. Alwaysverify current medications with the patient. PROAIR HFA 108 (90 BASE) MCG/ACT inhaler INL 2 PFS PO Q 4 TO 6 H PRN 5 8 Active DULERA 200-5 MCG/ACT inhaler INL 2 PFS PO BID IN THE MORNING AND IN THE MELANI 6 8 Active HYDROcodone-gracie taminophen (NORCO) 5-325 MG tablet TK 1 T PO Q 8 H PRN P 0 8 Active albuterol-iprat ropium (DUO-NEB) 0.5-2.5 (3) MG/3ML nebulizer solution USE 1 VIAL IN NEBULIZER QID FOR COPD 2 8 Active Active Problems No known active problems Social History Tobacco Use Types Packs/Day Years Used Date Smoking Tobacco: Every Day Smokeless Tobacco: Never Sex and Gender Information Value Date Recorded Sex Assigned at Not on file 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 Gender Identity Not on file Sexual Orientation [...] Tdap) 1983 PNEUMOCOCCAL VACCINE 50+ (1 of 1 - PCV) 2014 ZOSTER VACCINE (1 of 2) 2014 COVID-19 VACCINE (1 - 2023-2 5 season) 2024 DEPRESSION SCREENING 07/02/2024 INFLUENZA VACCINE (Season Ended) 2025 Respiratory Syncytial Virus (RSV) Vaccine Pt: or [...] to complete this topic MENINGOCOCCAL (Group B) VACC INE SHARED DECISION-MAKING Aged Out No longer eligibl e based on patient's age to complete this topic MENINGOCOCCAL GROUPS A/C/Y/W VACCINE Aged Out No longer eligible b ased on patient's age to complete this topic Insurance [facility] MEDICAID - [place] Care Teams Rn Imaging Relationship Specialty Start Date End Date Nahid Perez DO [address] [address] PCP - General 05/28/18
== END 2024-12-29 14:21 | disposition home or self-care (01) ==
PROVIDERS: Emergency Provider Registered Nurse; PCP Nurse Practitioner
DX: L03.319 Cellulitis of trunk, unspecified (principal); J44.9 Chronic obstructive pulmonary disease, unspecified; F17.210 Nicotine dependence, cigarettes, uncomplicated
CPT/HCPCS: 36415; 76705; 80053; 83605; 85025; 85610; 85730; 86140; 87040; 93005; 96361; 96365; 99284; J0690; J7030